=== PATIENT | female | born 1995 | race Caucasian/White ===

== ENCOUNTER 2021-10-10 14:31 | Outpatient (CLI) | payer OTHER, SELFPAY ==
--- NOTE | 2021-10-12 13:18 | P.PCNHOL_ITS ---
Holter/Event Monitor Holter/Event Monitor Date of procedure: 10/10/21 Holter/Event Procedure: 24 Hr Holter Monitor Diagnosis: Tachycardia Indications: Tachycardia Image/Tracing Quality: Good Finding: Test date 10/10/2021 Analysis date 10/12/2021 Reading date 10/12/2021 Findings: Total of 23 hours and 59 minutes recorded and analyzed. Underlying normal sinus rhythm with heart rate variability between 63 and 146 beats per minute with an average heart rate of 92 beats per minute. The AV and IV conduction systems were within normal limits There was a total 7 premature atrial contractions. There was no ventricular arrhythmia No sustained or nonsustained runs of supraventricular or ventricular tachycardia No significant heart block or pauses with longest RR interval of 1.2 seconds. Symptoms vents correlate to sinus rhythm or sinus tachycardia. Symptom events included shortness of breath, dizzy, dizzy, nauseated, shaky hands, shortness of breath, lightheaded, chest pain Conclusion: 1. Underlying normal sinus rhythm/sinus tachycardia with elevated a verage heart rate of 92 beats per minute 2. No ventricular ectopy or arrhythmia 3. Only a total of 7 premature atrial contractions noted 4. Several symptom events correlate to sinus rhythm or sinus tachycardia but was without associated arrhythmia, heart block, pauses
== END 2021-10-10 14:32 | disposition home or self-care (01) ==
LOC: ANHCARD 14:35
PROVIDERS: Visit Provider Advanced Practice Midwife
DX: R00.0 Tachycardia, unspecified (principal)
CPT/HCPCS: 93225; 93226

== ENCOUNTER 2021-10-20 14:32 | Observation (INO) | payer OTHER, SELFPAY ==
[2021-10-20] VITALS (10 sets, daily range): BP systolic 121–130; BP diastolic 66–71; PULSE 78–89; TEMP 36.9; O2SAT 98–99; BMI 65.4
--- NOTE | 2021-10-20 14:32 | OBADM ---
This patient, Chelsea Hyatt, admitted to the OB room OB Post 116 for observation. Patient/family oriented to hospital policies and general routines including ID bracelet, bed and alarms, visiting hours, pain management, procedures, bathroom and other care routines, personal items, smoking policy, room service/diet, and visiting hours. Patient/Family are encouraged to report perceived risks to care and to ask questions if they do not understand what they are told or what they should do.
[2021-10-20 15:47] LABS: Add Urine Microscopic? NO; Appearance Urine Clear (Clear); Bilirubin Urine Negative (Negative); Blood Urine Negative (Negative); Color Urine Straw (Yellow); Glucose Urine UA Negative (Negative); Ketones Urine Negative (Negative); Leukocyte Esterase Ur Negative LEU/UL (Negative); Nitrate Urine Negative (Negative); Protein Urine Negative (Negative); Urobilinogen Urine Negative mg/dL (<2.0)
[2021-10-20 15:55] LABS: Specific Grav Ur 1.004 (1.001-1.035)
--- NOTE | 2021-10-21 16:31 | PM.OBTRLD ---
OB - Triage/Final Diagnosis Visit Information Date of evaluation: 10/20/21 Reason for evaluation: threatened labor Comments/Additional reasons for admission: I have assessed the risk for this patient, Chelsea Hyatt, and determined that she would benefit from observation care. Evaluation Laboratory results: Laboratory Tests 10/20/21 10/20/21 15:30 15:30 Urine Color Cancelled Straw Urine Appearance Cancelled Clear Urine pH Cancelled 7.0 Ur Specific [place] Cancelled 1.004 Urine Protein Cancelled Negative Urine Glucose (UA) Cancelled Negative Urine Ketones Cancelled Negative Ur Blood (Man) Cancelled Negative Urine Nitrate Cancelled Negative Urine Bilirubin Cancelled Negative Urine Urobilinogen Cancelled Negative Ur Leukocyte Esterase Cancelled Leukocyte Esterase Rfl Negative Urine RBC Cancelled Urine WBC Cancelled Urine WBC Clumps Cancelled Ur Squamous Epith Cells Cancelled Ur Transition Epith Cell Cancelled Ur Renal Epithelial Cell Cancelled [place]ney Biurate Crystals Cancelled Calcium Carbonate Cryst Cancelled Calcium Phosphate Cryst Cancelled Calcium Oxalate Crystal Cancelled Leucine Crystals Cancelled Cystine Crystals Cancelled Uric Acid Crystals Cancelled Triple Phos Crystals Cancelled Sulfonamide Crystals Cancelled Cholesterol Crystals Cancelled Tyrosine Crystals Cancelled Hippuric Acid Crystals Cancelled Amorphous Sediment Cancelled Other Sediment Cancelled Urine Bacteria Cancelled Cellular Casts Cancelled Epithelial Casts Cancelled Fatty Casts Cancelled Hyaline Casts Cancelled Granular Casts Cancelled Waxy Casts Cancelled RBC Casts Cancelled WBC Casts Cancelled Urine Starch Cancelled Urine Mucus Cancelled Urine Trichomonas Cancelled Urine Yeast (Budding) Cancelled Ur Oval Fat Bodies Cancelled
== END 2021-10-20 17:00 | disposition home or self-care (01) ==
PROVIDERS: Admitting Provider Obstetrics & Gynecology; PCP Advanced Practice Midwife; Visit Provider Obstetrics & Gynecology
DX: O47.02 False labor before 37 completed weeks of gestation, second trimester (principal); Z3A.24 24 weeks gestation of pregnancy
CPT/HCPCS: 81003; G0378; G0379

== ENCOUNTER 2021-12-05 17:13 | Outpatient (CLI) | payer OTHER, SELFPAY ==
[2021-12-05 17:29] VITALS: BP 131/67; PULSE 89
[2021-12-05 18:19] VITALS: BP 131/67; PULSE 87; BMI 32.1
--- NOTE | 2021-12-05 18:21 | OBADM ---
This patient, Chelsea Hyatt, admitted to the OB room OB Post 111 for observation. Patient/family oriented to hospital policies and general routines including ID bracelet, bed and alarms, visiting hours, pain management, procedures, bathroom and other care routines, personal items, smoking policy, room service/diet, and visiting hours. Patient/Family are encouraged to report perceived risks to care and to ask questions if they do not understand what they are told or what they should do.
== END 2021-12-05 18:27 | disposition home or self-care (01) ==
LOC: ANHOBOP 12-06 08:18 → ANHOBPP 12-12 06:20
PROVIDERS: PCP Advanced Practice Midwife; Visit Provider Obstetrics & Gynecology
DX: O42.913 Preterm premature rupture of membranes, unspecified as to length of time between rupture and onset of labor, third trimester (principal); Z3A.30 30 weeks gestation of pregnancy
CPT/HCPCS: 59025; 99199

== ENCOUNTER 2022-01-02 10:14 | Outpatient (CLI) | payer OTHER, SELFPAY ==
[2022-01-02] VITALS (25 sets, daily range): BP systolic 122–132; BP diastolic 66–82; PULSE 87–107; O2SAT 98–99
[2022-01-02 11:33] LABS: Basophils Percent Auto 0.2 % (0.2-1.2); Eosinophils Percent Auto 0.2 % (0-4.4); Hematocrit 38.2 % (37.0-47.0); Hemoglobin 12.9 g/dL (12.0-15.0); Immature Granulocyte Absolute 0.06 K/mm3 (0.00-0.031); Immature Granulocyte Percent A 0.4 % (0-0.5); Lymphocytes Absolute Auto 1.66 K/mm3 (0.9-3.2); Lymphocytes Percent Auto 11.2 % (18.3-44.2); Mean Corpuscular HGB Conc 33.8 g/dl (32-36); Mean Corpuscular Volume 97.7 fl (80-100); Monocytes Absolute Auto 1.4 K/mm3 (0.1-0.6); Monocytes Percent Auto 9.6 % (2.6-8.5); Neutrophils Absolute Auto 11.6 K/mm3 (1.3-6.7); Neutrophils Percent Auto 78.4 % (45.5-73.1); Platelet Count Result 299 k/mm3 (150-375); Red Blood Count 3.91 M/mm3 (4.2-5.4); Red Cell Distribution Width 13.3 % (11.5-14.5); White Blood Count 14.8 K/mm3 (4.5-10.0)
[2022-01-02 11:39] LABS: Creatinine Urine 78.4 mg/dL; Total Protein Urine Random 9 mg/dL; Ur Ttl Prot Creatinine Ratio 0.11 mg/mg (0-0.20)
[2022-01-02 11:41] LABS: Alanine Aminotransferase 13 U/L (6-35); Albumin Level 3.6 g/dL (3.5-5.1); Alkaline Phosphatase 108 U/L (38-126); Anion Gap 5 mmol/L (8-16); Aspartate Amino Transferase 18 U/L (14-36); Bilirubin,Total < 0.1 mg/dL (0.2-1.3); Blood Urea Nitrogen 8 mg/dL (7-17); Carbon Dioxide 23 mmol/L (22-30); Chloride 107 mmol/L (98-107); Estimated Glomerular Filt Rate > 60; Glucose 73 mg/dL (65-110); Sodium 135 mmol/L (137-145); Uric Acid 3.8 mg/dL (2.5-7.5)
[2022-01-02 11:42] LABS: Appearance Urine Clear (Clear); Bilirubin Urine Negative (Negative); Blood Urine Negative (Negative); Color Urine Yellow (Yellow); Glucose Urine UA Negative (Negative); Ketones Urine Negative (Negative); Leukocyte Esterase Ur Negative LEU/UL (NEGATIVE); Nitrate Urine Negative (Negative); Protein Urine Negative (Negative); Urobilinogen Urine 0.2 mg/dL (<2.0)
[2022-01-02 12:03] LABS: Add Urine Microscopic? NO
--- NOTE | 2022-01-02 12:48 | PC.NURSE ---
Dr. Richardson notified of admission complaints, lab values, vitals and heart tones. Ok to DC pt home with pre-E precautions.
== END 2022-01-02 12:50 | disposition home or self-care (01) ==
LOC: ANHOBOP 10:23 → ANHOBPP 10:23
PROVIDERS: Visit Provider Advanced Practice Midwife
DX: R06.02 Shortness of breath (principal); H53.8 Other visual disturbances
CPT/HCPCS: 36415; 59025; 80053; 81003; 82570; 84156; 84550; 85025; 87086; 99199

== ENCOUNTER 2022-01-16 15:46 | Outpatient (CLI) | payer OTHER, SELFPAY ==
[2022-01-16] VITALS (7 sets, daily range): BP systolic 130–143; BP diastolic 73–90; PULSE 96–110
[2022-01-16] MEDS: ONDANSETRON HCL ODT 4 MG TABLET PO (16:25)
[2022-01-16 16:33] LABS: Basophils Absolute Auto 0.1 K/mm3 (0.0-0.1); Basophils Percent Auto 0.3 % (0.2-1.2); Eosinophils Percent Auto 0.2 % (0-4.4); Hematocrit 37.1 % (37.0-47.0); Hemoglobin 12.9 g/dL (12.0-15.0); Immature Granulocyte Absolute 0.06 K/mm3 (0.00-0.031); Immature Granulocyte Percent A 0.4 % (0-0.5); Lymphocytes Absolute Auto 1.64 K/mm3 (0.9-3.2); Lymphocytes Percent Auto 11.3 % (18.3-44.2); Mean Corpuscular HGB Conc 34.8 g/dl (32-36); Mean Corpuscular Hemoglobin 33.6 pg (26-34); Mean Corpuscular Volume 96.6 fl (80-100); Mean Platelet Volume 11.1 fl (7.4-10.4); Monocytes Absolute Auto 1.2 K/mm3 (0.1-0.6); Monocytes Percent Auto 8.3 % (2.6-8.5); Neutrophils Absolute Auto 11.5 K/mm3 (1.3-6.7); Neutrophils Percent Auto 79.5 % (45.5-73.1); Platelet Count Result 306 k/mm3 (150-375); Red Blood Count 3.84 M/mm3 (4.2-5.4); Red Cell Distribution Width 13.4 % (11.5-14.5); White Blood Count 14.5 K/mm3 (4.5-10.0)
[2022-01-16 16:47] LABS: Appearance Urine Clear (Clear); Bilirubin Urine Negative (Negative); Blood Urine Negative (Negative); Color Urine Yellow (Yellow); Glucose Urine UA Negative (Negative); Ketones Urine Negative (Negative); Leukocyte Esterase Ur Negative LEU/UL (NEGATIVE); Nitrate Urine Negative (Negative); Protein Urine Negative (Negative); Urobilinogen Urine 0.2 mg/dL (<2.0)
[2022-01-16 16:49] LABS: Add Urine Microscopic? NO
[2022-01-16 16:53] LABS: Alanine Aminotransferase 16 U/L (6-35); Albumin Level 3.4 g/dL (3.5-5.1); Alkaline Phosphatase 133 U/L (38-126); Anion Gap 6 mmol/L (8-16); Aspartate Amino Transferase 19 U/L (14-36); Bilirubin,Total < 0.1 mg/dL (0.2-1.3); Blood Urea Nitrogen 8 mg/dL (7-17); Calcium 8.3 mg/dL (8.4-10.2); Carbon Dioxide 20 mmol/L (22-30); Chloride 109 mmol/L (98-107); Estimated Glomerular Filt Rate > 60; Glucose 135 mg/dL (65-110); Potassium 3.7 mmol/L (3.4-5.0); Sodium 135 mmol/L (137-145)
[2022-01-16 16:54] LABS: Creatinine Urine 116.9 mg/dL
[2022-01-16 17:07] LABS: Total Protein Urine Random < 5 mg/dL
[2022-01-16 17:08] LABS: Ur Ttl Prot Creatinine Ratio < 0.04 mg/mg (0-0.20)
--- NOTE | 2022-01-16 17:40 | PC.NURSE ---
Porsche Morales called and updated on patient status/lab values. New orders for one dose of Fioricet for headache. New home order for 4 mg of zofran. Ordered to observe patient for 30 minutes and callback with status update.
[2022-01-16] MEDS: ACETAMINOPHEN/BUTALBITAL/CAFFEINE 325-50-40 MG TABLET (FIORICET) 1 TAB PO (17:46)
== END 2022-01-16 18:23 | disposition home or self-care (01) ==
LOC: ANHOBOP 15:51 → ANHOBPP 15:52
PROVIDERS: Visit Provider Advanced Practice Midwife
DX: O13.9 Gestational [pregnancy-induced] hypertension without significant proteinuria, unspecified trimester (principal); Z3A.00 Weeks of gestation of pregnancy not specified
CPT/HCPCS: 36415; 59025; 80053; 81003; 82570; 84156; 84550; 85025; 87086; 99199; A9270

== ENCOUNTER 2022-01-18 10:10 | Inpatient (IN) | payer OTHER, SELFPAY ==
[2022-01-18] VITALS (148 sets, daily range): BP systolic 103–166; BP diastolic 47–102; PULSE 82–118; TEMP 36.6–36.9; O2SAT 97–100; BMI 32.1
--- NOTE | 2022-01-18 10:32 | LDADM ---
This patient, Chelsea Hyatt, was admitted to Labor/Delivery/Recovery 108 on 01/18/22 at 10:10. Plans for labor, pain management and were discussed with patient. Patient/family oriented to hospital policies and general routines including ID bracelet, bed and alarms, visiting hours, pain management, procedures, bathroom and other care routines, personal items, smoking policy, room service/diet and guest tray routines, security routines, and visiting hours. Patient/Family are encouraged to report perceived risks to care and to ask questions if they do not understand what they are told or what they should do. See OBIX for further documentation.
[2022-01-18 11:01] LABS: Basophils Percent Auto 0.3 % (0.2-1.2); Eosinophils Percent Auto 0.1 % (0-4.4); Hemoglobin 12.9 g/dL (12.0-15.0); Immature Granulocyte Absolute 0.06 K/mm3 (0.00-0.031); Immature Granulocyte Percent A 0.4 % (0-0.5); Lymphocytes Absolute Auto 1.49 K/mm3 (0.9-3.2); Lymphocytes Percent Auto 10.2 % (18.3-44.2); Mean Corpuscular HGB Conc 33.9 g/dl (32-36); Mean Corpuscular Hemoglobin 32.7 pg (26-34); Mean Corpuscular Volume 96.2 fl (80-100); Mean Platelet Volume 10.8 fl (7.4-10.4); Platelet Count Result 281 k/mm3 (150-375); Red Blood Count 3.95 M/mm3 (4.2-5.4); Red Cell Distribution Width 13.3 % (11.5-14.5); White Blood Count 14.6 K/mm3 (4.5-10.0)
[2022-01-18] MEDS: DINOPROSTONE 10 MG VAG INSERT VAGINAL (11:04)
[2022-01-18 11:14] LABS: Sodium 135 mmol/L (137-145)
[2022-01-18 11:18] LABS: Alanine Aminotransferase 16 U/L (6-35); Albumin Level 3.5 g/dL (3.5-5.1); Alkaline Phosphatase 135 U/L (38-126); Anion Gap 5 mmol/L (8-16); Aspartate Amino Transferase 21 U/L (14-36); Bilirubin,Total < 0.1 mg/dL (0.2-1.3); Blood Urea Nitrogen 10 mg/dL (7-17); Calcium 8.9 mg/dL (8.4-10.2); Carbon Dioxide 20 mmol/L (22-30); Chloride 110 mmol/L (98-107); Estimated CRCL calculation 128 ml/min; Estimated Glomerular Filt Rate > 60; Glucose 111 mg/dL (65-110); Potassium 3.8 mmol/L (3.4-5.0); Uric Acid 4.3 mg/dL (2.5-7.5)
[2022-01-18] MEDS: ONDANSETRON INJ 4 MG/2 ML VIAL IV PUSH (11:46)
[2022-01-18] MEDS: LACTATED RINGERS 1,000 ML 125 ML IV CONT (11:49)
--- NOTE | 2022-01-18 11:49 | WPDANESEPP ---
Anes - Eval Pre Procedure Procedure: labor epidural Date/Time: 01/18/22 11:49 Preop Diagnosis: labor pain Pre Op Diagnosis: iol Patient Data Age: 26 Gender: F Height: 1.63 m Weight: 85 kg Last Vital Signs Pulse 87 01/18/22 11:45 BP 124/76 01/18/22 11:45 O2 Del Method Room Air 01/18/22 10:31 Allergies Allergy/AdvReac Type Severity Reaction Status Date / Time Penicillins Allergy Unknown Verified 01/11/22 13:32 Home Medications Medication Instructions Recorded Confirmed Type szcnrzhpmr-osekhkwnwgtjn-krhrimxl 1 tablet PO Q4-6H PRN Headache 01/11/22 01/11/22 History 50 mg-325 mg-40 mg tablet famotidine 10 mg tablet (Pepcid AC) 10 mg PO BID 01/11/22 01/11/22 History prenat.vits,leticia,qfb-ypna-stwrd 1 tablet PO DAILY 01/11/22 01/11/22 History ondansetron 4 mg disintegrating 4 mg PO Q6H PRN Nausea #10 tabs 01/16/22 Rx tablet Laboratory Tests 01/18/22 01/18/22 01/18/22 10:39 10:39 10:39 WBC 14.6 K/mm3 H K/mm3 (4.5-10.0) RBC 3.95 M/mm3 L M/mm3 (4.2-5.4) Hgb 12.9 g/dL g/dL (12.0-15.0) Hct 38.0 % % (37.0-47.0) MCV 96.2 fl fl (80-100) MCH 32.7 pg pg (26-34) MCHC 33.9 g/dl g/dl (32-36) RDW 13.3 % % (11.5-14.5) Plt Count 281 k/mm3 k/mm3 (150-375) MPV 10.8 fl H fl (7.4-10.4) Immature Gran % (Auto) 0.4 % % (0-0.5) Neut % (Auto) 82.0 % H % (45.5-73.1) Lymph % (Auto) 10.2 % L % (18.3-44.2) [place] % (Auto) 7.0 % % (2.6-8.5) Eos % (Auto) 0.1 % % (0-4.4) Baso % (Auto) 0.3 % % (0.2-1.2) Lymph # (Auto) 1.49 K/mm3 K/mm3 (0.9-3.2) [place] # (Auto) 1.0 K/mm3 H K/mm3 (0.1-0.6) Eos # (Auto) 0.0 K/mm3 K/mm3 (0-0.3) Baso # (Auto) 0.0 K/mm3 K/mm3 (0.0-0.1) Abs Immat Gran (auto) 0.06 K/mm3 H K/mm3 (0.00-0.031) Absolute Neuts (auto) 12.0 K/mm3 H K/mm3 (1.3-6.7) Absolute Nucleated RBC 0.0 K/mm3 K/mm3 (0.0-0.012) Nucleated RBC % 0.0 % % (0.0-0.2) Sodium 135 mmol/L L mmol/L (137-145) Potassium 3.8 mmol/L mmol/L (3.4-5.0) Chloride 110 mmol/L H mmol/L (98-107) Carbon Dioxide 20 mmol/L L mmol/L (22-30) Anion Gap 5 mmol/L L mmol/L (8-16) BUN 10 mg/dL mg/dL (7-17) Creatinine 0.60 mg/dL L mg/dL (0.7-1.0) Estim Creat Clear Calc 128 ml/min ml/min Estimated GFR > 60 (59 - ) Glucose 111 mg/dL H mg/dL (65-110) Uric Acid 4.3 mg/dL mg/dL (2.5-7.5) Calcium 8.9 mg/dL mg/dL (8.4-10.2) Total Bilirubin < 0.1 mg/dL L mg/dL (0.2-1.3) AST 21 U/L U/L (14-36) ALT 16 U/L U/L (6-35) Alkaline Phosphatase 135 U/L H U/L (38-126) Total Protein 7.0 g/dL g/dL (6.3-8.2) Albumin 3.5 g/dL g/dL (3.5-5.1) RPR Pending Patient hx anesthesia problems: none Family hx anesthesia problems: none Results Review: All pre-operative results and documents have been reviewed as part of the pre-operative evaluation. [facility] Family History Family History (Updated 01/11/22 @ 13:37 by Bernie Oates RN) Father Esophageal cancer Grandparent Breast cancer in female Social History Social History Smoking status: Never smoker Substance use: never Spiritual care concerns: No Comments migraine HSV tachycardia with spondylostesis L5-S1 Exam Day of Procedure 01/18/22 11:49
[2022-01-18] MEDS: MAGNESIUM SULF 4 GM/WATER100ML 4 GM/100 ML BAG IVPB (11:50)
[2022-01-18] MEDS: MAGNESIUM SULF 20GM/WATER500ML 500 ML 50 MG IV CONT ×2 (12:28→22:24)
[2022-01-18] MEDS: diphenhydrAMINE HCl INJ 50 MG/ML VIAL 25 MG IV PUSH (15:18)
[2022-01-18] MEDS: METOCLOPRAMIDE HCL INJ 10 MG/2 ML VIAL IV PUSH (15:19)
--- NOTE | 2022-01-18 18:25 | PM.IMHP ---
H&P: HPI History of Present Illness Date/Time: 01/18/22 18:25 Chief Complaint: Patient presents to L&D for medical induction of labor. Patient presented to office today with severe range blood pressures and headache unresolved by medication. Discussed with Dr. Monroe and patient has been started on magnesium sulfate. Headache has not resolved with multiple interventions and is currently rating at 8/10. BP normotensive at rest. Review of Systems Review of Systems: All systems reviewed & are unremarkable except as noted in HPI and below PMFSH Family History Family History (Updated 01/11/22 @ 13:37 by Bernie Oates RN) Father Esophageal cancer Grandparent Breast cancer in female Social History Social History Smoking status: Never smoker Substance use: never Spiritual care concerns: No Meds Home Medications and Allergies Home Medications Medication Instructions Recorded Confirmed Type rfjwvgiwfc-gadwebixbwlrr-sjgvtubv 1 tablet PO Q4-6H PRN Headache 01/11/22 01/11/22 History 50 mg-325 mg-40 mg tablet famotidine 10 mg tablet (Pepcid AC) 10 mg PO BID 01/11/22 01/11/22 History prenat.vits,leticia,jpz-xyun-rzfau 1 tablet PO DAILY 01/11/22 01/11/22 History ondansetron 4 mg disintegrating 4 mg PO Q6H PRN Nausea #10 tabs 01/16/22 Rx tablet Allergies Allergy/AdvReac Type Severity Reaction Status Date / Time Penicillins Allergy Unknown Verified 01/11/22 13:32 Vital Signs Vital Signs - 24 hr 01/18/22 10:31 01/18/22 10:59 01/18/22 11:15 Temperature Pulse Rate 109 H 96 Blood Pressure 132/75 123/77 Pulse Oximetry Oxygen Delivery Room Air 01/18/22 11:30 01/18/22 11:45 01/18/22 12:01 Temperature Pulse Rate 93 87 84 Blood Pressure 127/72 124/76 119/60 Pulse Oximetry Oxygen Delivery 01/18/22 12:15 01/18/22 12:30 01/18/22 12:45 Temperature Pulse Rate 89 87 83 Blood Pressure 126/79 115/66 125/70 Pulse Oximetry Oxygen Delivery 01/18/22 13:02 01/18/22 13:15 01/18/22 13:31 Temperature Pulse Rate 87 85 90 Blood Pressure 114/73 128/77 119/62 Pulse Oximetry Oxygen Delivery 01/18/22 13:45 01/18/22 14:00 01/18/22 14:16 Temperature Pulse Rate 90 99 107 H Blood Pressure 122/76 128/72 127/72 Pulse Oximetry Oxygen Delivery 01/18/22 14:30 01/18/22 14:46 01/18/22 15:01 Temperature Pulse Rate 108 H 105 H 104 H Blood Pressure 148/85 H 153/79 H 152/93 H Pulse Oximetry Oxygen Delivery 01/18/22 15:03 01/18/22 15:08 01/18/22 15:13 Temperature Pulse Rate Blood Pressure Pulse Oximetry 99 99 98 Oxygen Delivery 01/18/22 15:16 01/18/22 15:18 01/18/22 15:26 Temperature Pulse Rate 97 Blood Pressure 166/92 H Pulse Oximetry 99 99 Oxygen Delivery 01/18/22 15:29 01/18/22 15:31 01/18/22 15:34 Temperature Pulse Rate 103 H Blood Pressure 137/88 Pulse Oximetry 98 97 Oxygen Delivery 01/18/22 15:00 01/18/22 15:43 01/18/22 15:46 Temperature 36.6 C Pulse Rate 98 Blood Pressure 137/64 Pulse Oximetry 98 Oxygen Delivery 01/18/22 15:48 01/18/22 15:53 01/18/22 15:58 Temperature Pulse Rate Blood Pressure Pulse Oximetry 99 99 99 Oxygen Delivery 01/18/22 16:01 01/18/22 16:03 01/18/22 16:08 Temperature Pulse Rate 89 Blood Pressure 128/69 Pulse Oximetry 98 99 Oxygen Delivery 01/18/22 16:13 01/18/22 16:15 01/18/22 16:18 Temperature Pulse Rate 92 Blood Pressure 135/75 Pulse Oximetry 98 97 Oxygen Delivery 01/18/22 16:23 01/18/22 16:28 01/18/22 16:30 Temperature Pulse Rate 91 Blood Pressure 132/77 Pulse Oximetry 99 97 Oxygen Delivery 01/18/22 16:33 01/18/22 16:38 01/18/22 16:43 Temperature Pulse Rate Blood Pressure Pulse Oximetry 97 98 98 Oxygen Delivery 01/18/22 16:45 01/18/22 16:48 01/18/22 16:53 Temperature Pulse Rate 91 Blood Pressure 129/73 Pulse Oximetry 99
[2022-01-18] MEDS: ACETAMINOPHEN/BUTALBITAL/CAFFEINE 325-50-40 MG TABLET (FIORICET) 2 TAB PO (19:55)
[2022-01-18] MEDS: miSOPROStol 25 MCG TABLET VAGINAL (23:51)
[2022-01-18] MEDS: LACTATED RINGERS 1,000 ML 75 ML IV CONT (23:59)
[2022-01-19] VITALS (299 sets, daily range): BP systolic 104–159; BP diastolic 58–84; PULSE 76–112; TEMP 36.1–37; O2SAT 95–100
[2022-01-19] MEDS: ONDANSETRON INJ 4 MG/2 ML VIAL IV PUSH ×4 (00:19→20:48)
[2022-01-19 02:52] LABS: Magnesium 5.8 mg/dL (1.6-2.3)
[2022-01-19] MEDS: miSOPROStol 25 MCG TABLET VAGINAL ×3 (04:08→12:47)
[2022-01-19 05:54] LABS: Rapid Plasma Reagin Non-Reactive (NonReactive)
[2022-01-19] MEDS: fentaNYL CITRATE INJ (*CRX) 100 MCG/2 ML VIAL 50 MCG IV PUSH ×3 (07:19→19:43)
--- NOTE | 2022-01-19 07:27 | PM.OBPNVD ---
OB - PN: Subj Subjective Date/time seen: 01/19/22 07:27 IOL, severe preeclampsia, c/o bautista, denies visual changes, c/o nausea, magnesium sulfate at 2gm/hour OB - PN: Obj Data Labs CBC & Chem 7: 01/18/22 10:39 01/18/22 10:39 Labs: Laboratory Results - last 24 hr 01/18/22 01/18/22 01/18/22 10:39 10:39 10:39 WBC 14.6 H RBC 3.95 L Hgb 12.9 Hct 38.0 MCV 96.2 MCH 32.7 MCHC 33.9 RDW 13.3 Plt Count 281 MPV 10.8 H Immature Gran % (Auto) 0.4 Neut % (Auto) 82.0 H Lymph % (Auto) 10.2 L [place] % (Auto) 7.0 Eos % (Auto) 0.1 Baso % (Auto) 0.3 Lymph # (Auto) 1.49 [place] # (Auto) 1.0 H Eos # (Auto) 0.0 Baso # (Auto) 0.0 Abs Immat Gran (auto) 0.06 H Absolute Neuts (auto) 12.0 H Absolute Nucleated RBC 0.0 Nucleated RBC % 0.0 Sodium Potassium Chloride Carbon Dioxide Anion Gap BUN Creatinine Estim Creat Clear Calc Estimated GFR Glucose Uric Acid Calcium Magnesium Total Bilirubin AST ALT Alkaline Phosphatase Total Protein Albumin RPR Non-reactive Blood Type A Positive Antibody Screen Negative 01/18/22 01/19/22 10:39 02:15 WBC RBC Hgb Hct MCV MCH MCHC RDW Plt Count MPV Immature Gran % (Auto) Neut % (Auto) Lymph % (Auto) [place] % (Auto) Eos % (Auto) Baso % (Auto) Lymph # (Auto) [place] # (Auto) Eos # (Auto) Baso # (Auto) Abs Immat Gran (auto) Absolute Neuts (auto) Absolute Nucleated RBC Nucleated RBC % Sodium 135 L Potassium 3.8 Chloride 110 H Carbon Dioxide 20 L Anion Gap 5 L BUN 10 Creatinine 0.60 L Estim Creat Clear Calc 128 Estimated GFR > 60 Glucose 111 H Uric Acid 4.3 Calcium 8.9 Magnesium 5.8 H Total Bilirubin < 0.1 L AST 21 ALT 16 Alkaline Phosphatase 135 H Total Protein 7.0 Albumin 3.5 RPR Blood Type Antibody Screen OB - PN A/P Assessment and Plan (1) Pre-eclampsia: Code(s): O14.90 - Unspecified pre-eclampsia, unspecified trimester Status: Acute Plan 1. bat 37.1 weks gestation 2. continue magnesium sulfate and MIL Dr. Richardson aware Time Spent With Patient Time: Total time spent is greater than 50% in coordination of care (as documented) at patient's floor/unit and/or counseling patient: Review of Systems Review of Systems: All systems reviewed & are unremarkable except as noted in HPI and below Exam Narrative: SVE 0.5 cm/50/-2 Const: General: cooperative and uncomfortable
[2022-01-19] MEDS: MAGNESIUM SULF 20GM/WATER500ML 500 ML 50 MG IV CONT ×2 (08:06→18:21)
[2022-01-19] MEDS: LACTATED RINGERS 1,000 ML 75 ML IV CONT (12:27)
[2022-01-19] MEDS: fentaNYL CITRATE INJ (*CRX) 100 MCG/2 ML VIAL IV PUSH (12:38)
--- NOTE | 2022-01-19 18:08 | WPDANESEPP ---
Anes - Eval Pre Procedure Procedure: Labor Epidural Date/Time: 01/19/22 18:08 Pre Op Diagnosis: iol Patient Data Age: 26 Gender: F Height: 1.63 m Weight: 85 kg Last Vital Signs Temp 36.4 C L 01/19/22 13:00 Pulse 91 01/19/22 14:01 BP 120/75 01/19/22 14:01 Pulse Ox 98 01/19/22 18:07 O2 Del Method Room Air 01/18/22 10:31 Allergies Allergy/AdvReac Type Severity Reaction Status Date / Time Penicillins Allergy Unknown Verified 01/11/22 13:32 Home Medications Medication Instructions Recorded Confirmed Type ypfkwewjkt-fpojpurhjdjiz-uxfzsgjm 1 tablet PO Q4-6H PRN Headache 01/11/22 01/11/22 History 50 mg-325 mg-40 mg tablet famotidine 10 mg tablet (Pepcid AC) 10 mg PO BID 01/11/22 01/11/22 History prenat.vits,leticia,vqi-ythc-pjbnz 1 tablet PO DAILY 01/11/22 01/11/22 History ondansetron 4 mg disintegrating 4 mg PO Q6H PRN Nausea #10 tabs 01/16/22 Rx tablet Laboratory Tests 01/18/22 01/19/22 10:39 02:15 Magnesium 5.8 mg/dL H mg/dL (1.6-2.3) RPR Non-reactive (NonReactive) Patient hx anesthesia problems: none Family hx anesthesia problems: none Results Review: All pre-operative results and documents have been reviewed as part of the pre-operative evaluation. [facility] Family History Family History Father Esophageal cancer Grandparent Breast cancer in female Social History Social History Smoking status: Never smoker Substance use: never Spiritual care concerns: No Exam Day of Procedure 01/19/22 18:08
[2022-01-19] MEDS: DINOPROSTONE 10 MG VAG INSERT VAGINAL (18:32)
[2022-01-19 22:28] LABS: Magnesium 6.5 mg/dL (1.6-2.3)
[2022-01-20] VITALS (245 sets, daily range): BP systolic 64–167; BP diastolic 28–102; PULSE 65–164; RESP 14–18; TEMP 35.7–37; O2SAT 93–100
[2022-01-20] MEDS: LACTATED RINGERS 1,000 ML 75 ML IV CONT ×3 (01:58→14:43)
[2022-01-20] MEDS: MAGNESIUM SULF 20GM/WATER500ML 500 ML 50 MG IV CONT ×2 (04:29→14:30)
[2022-01-20] MEDS: SALINE 0.65% NAS SOLN 44 ML BTL 1 SPRAY NASAL (05:38)
[2022-01-20] MEDS: OXYTOCIN 30 UNITS/NS 500 ML 30 UNITS/500 ML BAG 6 UNITS IV CONT (07:25)
[2022-01-20] MEDS: PHENYLEPHRINE 1,000 MCG/10 ML SYRINGE 100 MCG IV PUSH (09:15)
--- NOTE | 2022-01-20 12:04 | PM.OBPNLAB ---
Pain Control Date/time seen: 01/20/22 12:04 pt comfortable with epidural, FHR category 2 Pelvic Exam Comments: SVE /-2 anterior/soft, AROM moderate amount of clear odorless fluid, IUPC placed
--- NOTE | 2022-01-20 12:16 | PM.OBPNLAB ---
Pain Control Date/time seen: 01/20/22 12:16 Assessment and Plan Comments: 1. intolerance to labor 2. preeclampsia 3. CMV +IGG at 37.2 weeks gestation consulted with Dr. Richardson and plan section
[2022-01-20] MEDS: ceFAZolin 2 GM/D5W 50 ML 2 GM/50 ML BAG IVPB (12:41)
--- NOTE | 2022-01-20 13:19 | W.PM.PROC2 ---
Procedure Note - Detailed Date of Procedure 01/20/22 Pre-op Diagnosis Nonreassuring heart tones, distress, severe preeclampsia Post-op Diagnosis Same Procedure Performed Low-transverse section Surgeon Roslyn Richardson MD Anesthesia Spinal Indications Nonreassuring heart tones, possible distress Findings Normal gestational maternal anatomy, average size , normal Apgars. Description of Procedure This procedure was initially performed a rapid fashion. It was completed after the deliver the with a normal pace. The patient was taken the operating room. She was prepped and draped in dorsal supine position with a leftward tilt. A low-transverse skin incision was made and carried down till of the fascia with the knife. The fascial incision was made with the knife. The fascial incision was extended laterally with Clark scissors. The fascia was tented upward superiorly and inferiorly the rectus muscles were dissected off bluntly. The rectus muscles were the midline. The preperitoneal fat and peritoneum were dissected open bluntly at the superior aspect of the rectus muscles. The peritoneal incision was extended superior and inferior with good position of bladder. The uterine incision was made with a scalpel down to the level of the amniotic cavity. The amniotic cavity was entered bluntly. The was delivered. The cord was clamped and cut and the infant was handed off to waiting pediatric staff. Cord bloods were obtained. The placenta was removed manually. The uterus was exteriorized. The uterus was cleared of all clots, debris and membranes. The uterus was closed in 0 Vicryl running lock fashion. An imbricating over a was placed along the incision line as well. The uterus was returned to the abdomen. The gutters were cleared of all clots and debris. The fascia was closed with 0 Vicryl running fashion. The subcutaneous tissue was irrigated pinpoint bleeders were cauterized. The skin was closed with subcuticular absorbable vin. The skin incision line was covered with glue. The patient tolerated the procedure well. She has taken recovery room in stable condition. Sponge lap and needle counts were correct x2. Estimated Blood Loss 300 Urine Output 300 Complications No immediate complications Condition Stable Disposition PACU
[2022-01-20] MEDS: OXYTOCIN 30 UNITS/NS 500 ML 30 UNITS/500 ML BAG 125 UNITS IV CONT (13:38)
[2022-01-20] MEDS: fentaNYL CITRATE INJ (*CRX) 100 MCG/2 ML VIAL 25 MCG IV PUSH (15:44)
--- NOTE | 2022-01-20 15:50 | OBPPTRN ---
Patient transferred to post room # 290 via stretcher. Support person present. Oriented to unit, room, information board, rooming in, admission packet and security measures. Patient verbalizes understanding.
[2022-01-20] MEDS: KETOROLAC 30 MG/ML VIAL (*BKC) IV PUSH (16:53)
[2022-01-20] MEDS: ONDANSETRON INJ 4 MG/2 ML VIAL IV PUSH ×2 (16:59→22:34)
[2022-01-20] MEDS: DEXTROSE 5%/0.45% SOD CHL 1,000 ML 125 ML IV CONT (18:40)
[2022-01-21 04:45] VITALS: BP 113/68; PULSE 93; RESP 18; TEMP 37.4; O2SAT 94
[2022-01-21 05:04] LABS: Basophils Percent Auto 0.2 % (0.2-1.2); Hematocrit 33.3 % (37.0-47.0); Hemoglobin 11.2 g/dL (12.0-15.0); Immature Granulocyte Absolute 0.12 K/mm3 (0.00-0.031); Immature Granulocyte Percent A 0.6 % (0-0.5); Lymphocytes Absolute Auto 1.16 K/mm3 (0.9-3.2); Lymphocytes Percent Auto 5.6 % (18.3-44.2); Mean Corpuscular HGB Conc 33.6 g/dl (32-36); Mean Corpuscular Hemoglobin 32.6 pg (26-34); Mean Corpuscular Volume 96.8 fl (80-100); Monocytes Percent Auto 9.5 % (2.6-8.5); Neutrophils Absolute Auto 17.3 K/mm3 (1.3-6.7); Neutrophils Percent Auto 84.1 % (45.5-73.1); Platelet Count Result 254 k/mm3 (150-375); Red Blood Count 3.44 M/mm3 (4.2-5.4); Red Cell Distribution Width 13.6 % (11.5-14.5); White Blood Count 20.6 K/mm3 (4.5-10.0)
[2022-01-21 06:45] VITALS: BP 114/68; PULSE 88; RESP 16; TEMP 37
[2022-01-21] MEDS: MULTIVIT/MIN/PREN/FOL AC/IRON TABLET 1 TAB PO (06:56)
[2022-01-21] MEDS: IBUPROFEN 600 MG TABLET PO ×3 (06:56→20:25)
[2022-01-21] MEDS: HYDROcodone/acetaminophen (*CRX) 5-325 MG TABLET 1 TAB PO ×5 (06:56→21:31)
[2022-01-21] MEDS: DOCUSATE SODIUM 100 MG CAPSULE PO ×2 (06:57→17:43)
--- NOTE | 2022-01-21 08:17 | P.PNAN_ITS ---
Anes - Prog Note Post-Op Date/Time: 01/21/22 08:17 Vital Signs: Last Vital Signs Temp 37.0 C 01/21/22 06:45 Pulse 88 01/21/22 06:45 Resp 16 01/21/22 06:45 BP 114/68 01/21/22 06:45 Pulse Ox 94 01/21/22 04:45 O2 Del Method Room Air 01/21/22 04:45 O2 Flow Rate 3 01/20/22 13:45 Pain Score (VAS): 09/01 I/O: Intake & Output 01/20/22 01/21/22 01/21/22 23:59 07:59 15:59 Intake Total 500 400 Output Total 1000 2050 Balance -500 -1650 Laboratory Tests 01/21/22 04:44 01/18/22 10:39 01/21/22 04:44 WBC 20.6 H RBC 3.44 L Hgb 11.2 L Hct 33.3 L MCV 96.8 MCH 32.6 MCHC 33.6 RDW 13.6 Plt Count 254 MPV 11.0 H Immature Gran % (Auto) 0.6 H Neut % (Auto) 84.1 H Lymph % (Auto) 5.6 L [place] % (Auto) 9.5 H Eos % (Auto) 0.0 Baso % (Auto) 0.2 Lymph # (Auto) 1.16 [place] # (Auto) 2.0 H Eos # (Auto) 0.0 Baso # (Auto) 0.0 Abs Immat Gran (auto) 0.12 H Absolute Neuts (auto) 17.3 H Absolute Nucleated RBC 0.0 Nucleated RBC % 0.0 Patient Feedback: Patient satisfied with anesthetic care.
--- NOTE | 2022-01-21 08:44 | PM.OBPNVD ---
OB - PN: Subj Subjective Date/time seen: 01/21/22 08:44 Patient comments: no complaints, pain well controlled, tolerating diet and flatus present OB - PN: Obj Data Labs CBC & Chem 7: 01/21/22 04:44 01/18/22 10:39 Labs: Laboratory Results - last 24 hr 01/21/22 04:44 WBC 20.6 H RBC 3.44 L Hgb 11.2 L Hct 33.3 L MCV 96.8 MCH 32.6 MCHC 33.6 RDW 13.6 Plt Count 254 MPV 11.0 H Immature Gran % (Auto) 0.6 H Neut % (Auto) 84.1 H Lymph % (Auto) 5.6 L [place] % (Auto) 9.5 H Eos % (Auto) 0.0 Baso % (Auto) 0.2 Lymph # (Auto) 1.16 [place] # (Auto) 2.0 H Eos # (Auto) 0.0 Baso # (Auto) 0.0 Abs Immat Gran (auto) 0.12 H Absolute Neuts (auto) 17.3 H Absolute Nucleated RBC 0.0 Nucleated RBC % 0.0 OB - PN A/P Plan day: 1 Comments: Post Op LTCS - no problems, routine recovery Time Spent With Patient Time: Total time spent is greater than 50% in coordination of care (as documented) at patient's floor/unit and/or counseling patient: Exam Const: General: cooperative, healthy appearing, comfortable and no acute distress Resp: Auscultation: no crackles, no rales, no rhonchi and no wheezes Cardio: Rhythm: regular rhythm Heart sounds: no click and no murmurs GI: Inspection: non-distended Auscultation: normal bowel sounds Extrem: General: normal to inspection, no pedal edema and no calf tenderness
[2022-01-21 11:45] VITALS: BP 112/83; PULSE 89; RESP 16
[2022-01-21 16:00] VITALS: BP 120/77; PULSE 84; RESP 18; TEMP 36.6
[2022-01-21] MEDS: SIMETHICONE 80 MG TAB.CHEW PO (20:25)
[2022-01-21 20:30] VITALS: BP 128/64; PULSE 85; RESP 18; TEMP 36.6
[2022-01-21 23:50] VITALS: BP 115/68; PULSE 83; RESP 18; TEMP 36.2
[2022-01-22] MEDS: LANOLIN (LANSINOH) 7.5 GM CREAM 1 APPLIC TOPICAL
[2022-01-22] MEDS: SIMETHICONE 80 MG TAB.CHEW PO ×4 (04:51→22:23)
[2022-01-22] MEDS: HYDROcodone/acetaminophen (*CRX) 5-325 MG TABLET 1 TAB PO ×3 (04:51→22:22)
[2022-01-22] MEDS: IBUPROFEN 600 MG TABLET PO ×3 (04:51→22:22)
[2022-01-22 05:10] VITALS: BP 119/55; PULSE 101; RESP 16; TEMP 36.4
[2022-01-22 09:00] VITALS: BP 135/64; PULSE 104; RESP 14; RESP 16; TEMP 36.2; O2SAT 97
--- NOTE | 2022-01-22 09:01 | PM.OBPNVD ---
OB - PN: Subj Subjective Date/time seen: 01/22/22 09:01 Patient comments: no complaints, pain well controlled, incisional pain, tolerating diet and flatus present OB - PN: Obj Data Labs CBC & Chem 7: 01/21/22 04:44 01/18/22 10:39 OB - PN A/P Plan day: 2 Plan: routine care Comments: POD#2 LTCS - no problems, Time Spent With Patient Time: Total time spent is greater than 50% in coordination of care (as documented) at patient's floor/unit and/or counseling patient: Exam Const: General: comfortable, no acute distress and alert Resp: Effort & Inspection: normal respiratory effort Auscultation: no crackles, no rales and no rhonchi Cardio: Rate: regular rate Heart sounds: no click, no murmurs and no rubs GI: Inspection: non-distended GI Palp: No Tenderness to palpation present (GI) Auscultation: normal bowel sounds Other: Incision - CDI Extrem: General: normal to inspection, no pedal edema and no calf tenderness
[2022-01-22] MEDS: DOCUSATE SODIUM 100 MG CAPSULE PO ×2 (09:12→17:09)
[2022-01-22] MEDS: MULTIVIT/MIN/PREN/FOL AC/IRON TABLET 1 TAB PO (09:12)
[2022-01-22] MEDS: HYDROcodone/acetaminophen (*CRX) 10-325 MG TABLET 1 TAB PO (09:13)
[2022-01-22 12:00] VITALS: BP 121/74; PULSE 96; RESP 14; TEMP 36.3
[2022-01-22 16:45] VITALS: BP 125/64; PULSE 104; RESP 16; RESP 18; TEMP 36.4; O2SAT 98
[2022-01-22 19:00] VITALS: BP 111/72; PULSE 89; RESP 18; TEMP 36.8; O2SAT 97
[2022-01-22 23:00] VITALS: BP 121/72; PULSE 88; RESP 16; TEMP 36.6; O2SAT 98
[2022-01-22 23:56] LABS: Appearance Urine Slightly Cloudy (Clear); Bilirubin Urine Negative (Negative); Blood Urine 3+ (Negative); Glucose Urine UA Negative (Negative); Ketones Urine Negative (Negative); Leukocyte Esterase Ur Trace LEU/UL (NEGATIVE); Nitrate Urine Negative (Negative); Protein Urine 1+ mg/dL (Negative); Specific Grav Ur 1.025 (1.001-1.035); Urobilinogen Urine 0.2 mg/dL (<2.0)
[2022-01-22 23:58] LABS: Add Urine Microscopic? YES; Color Urine Dark Yellow (Yellow)
[2022-01-23] LABS: Bacteria Urine Trace /hpf; Mucus Urine Few /lpf; RBC Urine >75 /hpf (0-2); Squamous Epithelial Cell Urine Moderate /hpf (Few); WBC Urine 31-50 /hpf (0-3)
[2022-01-23 02:30] VITALS: BP 120/67; PULSE 86; RESP 16; TEMP 36.3; O2SAT 98
[2022-01-23] MEDS: IBUPROFEN 600 MG TABLET PO (05:54)
[2022-01-23] MEDS: SIMETHICONE 80 MG TAB.CHEW PO (05:54)
[2022-01-23] MEDS: HYDROcodone/acetaminophen (*CRX) 5-325 MG TABLET 1 TAB PO (05:54)
[2022-01-23 07:40] VITALS: BP 124/76; PULSE 92; RESP 16; TEMP 36.9; O2SAT 98
[2022-01-23] MEDS: DOCUSATE SODIUM 100 MG CAPSULE PO (09:17)
[2022-01-23] MEDS: MULTIVIT/MIN/PREN/FOL AC/IRON TABLET 1 TAB PO (09:17)
--- NOTE | 2022-01-23 10:00 | P.PNOB_ITS ---
OB - PN: Subj Subjective Date/time seen: 01/23/22 10:00 Patient comments: no complaints, pain well controlled, incisional pain, tolerating diet and flatus present OB - PN: Obj Data Labs CBC & Chem 7: 01/21/22 04:44 01/18/22 10:39 Labs: Laboratory Results - last 24 hr 01/22/22 23:45 Urine Color Dark yellow Urine Appearance Slightly cloudy Urine pH 6.0 Ur Specific [place] 1.025 Urine Protein 1+ H Urine Glucose (UA) Negative Urine Ketones Negative Ur Blood (Man) 3+ H Urine Nitrate Negative Urine Bilirubin Negative Urine Urobilinogen 0.2 Ur Leukocyte Esterase Trace H Urine RBC >75 H Urine WBC 31-50 H Ur Squamous Epith Cells Moderate H Urine Bacteria Trace Urine Mucus Few H OB - PN A/P Plan day: 3 Plan: routine care, discharge home and other Comments: Incision check in one week. Given precautions Time Spent With Patient Time: Total time spent is greater than 50% in coordination of care (as documented) at patient's floor/unit and/or counseling patient: Exam Const: General: comfortable, no acute distress and alert Resp: Effort & Inspection: normal respiratory effort Auscultation: no crack les, no rales and no rhonchi Cardio: Rate: regular rate Heart sounds: no click, no murmurs and no rubs GI: Inspection: non-distended GI Palp: No Tenderness to palpation present (GI) Auscultation: normal bowel sounds Other: Incision - CDI Extrem: General: normal to inspection, no pedal edema and no calf tenderness
--- NOTE | 2022-01-23 10:02 | PM.OBDSVD ---
DS: Admitting Diagnosis Discharge Date 01/23/22 Admitting Diagnosis preeclampsia DS: Discharge Diagnosis Discharge Diagnosis (1) Pre-eclampsia: Code(s): O14.90 - Unspecified pre-eclampsia, unspecified trimester Status: Acute (2) Term : Code(s): Z34.90 - Encounter for supervision of normal , unspecified, unspecified trimester Status: Acute OB - DS: Summary OB Procedures : NST OB Procedures Intrapartum: OB Procedures: : None Peripartum Data Procedures: Procedures Operation Date: 01/20/22 12:40 Actual Procedure Side Surgeon p Section Roslyn Richardson MD Time Spent with Patient Time attestation: Total time spent providing and/or coordinating discharge services: DS: Data Data Completed and Pending Pending studies at discharge: Pending at discharge 01/20/22 12:49 Surgical [PTH] Routine Labs on day of discharge: Labs from last 24 hours 01/22/22 23:45 Urine Color Dark yellow Urine Appearance Slightly cloudy Urine pH 6.0 Ur Specific [place] 1.025 Urine Protein 1+ H Urine Glucose (UA) Negative Urine Ketones Negative Ur Blood (Man) 3+ H Urine Nitrate Negative Urine Bilirubin Negative Urine Urobilinogen 0.2 Ur Leukocyte Esterase Trace H Urine RBC >75 H Urine WBC 31-50 H Ur Squamous Epith Cells Moderate H Urine Bacteria Trace Urine Mucus Few H Discharge Plan Discharge Discharging Clinician: Roslyn Richardson Patient Disposition: Home, Self-Care Activity: pelvic rest Diet: regular Patient Instructions: Antibiotic Form Stand Alone Forms: General Discharge Information Follow-up/Referrals: Roslyn Richardson MD [Physician] - Discharge Medications: New hydrocodone-acetaminophen 5-325 mg tablet 1 tablet PO Q4H PRN (Reason: pain) Qty: 25 0RF Continued famotidine [Pepcid AC] 10 mg Tablet 10 mg PO BID naopkzpqkx-kifmaizyxmkgv-onjg [Fioricet] 50-325-40 mg Tablet 1 tablet PO Q4-6H PRN (Reason: Headache) #2 Tablet 1 tablet PO DAILY ondansetron 4 mg Tablet,Disintegrating 4 mg PO Q6H PRN (Reason: Nausea) Qty: 10 0RF Date of admission: 01/18/22 10:10 Primary Care Provider: PHYSICIAN,STRETCHING PRESS OPERATOR Admitting Provider: Roslyn Richardson Attending physician on admission: Roslyn Richardson Condition: Stable
[2022-01-24 11:21] VITALS: PULSE 80; RESP 20; TEMP 37.1; O2SAT 98
--- NOTE | 2022-02-19 22:23 | WPDHPUPDATE1 ---
History and Physical Update Update Date/Time: 02/19/22 22:23 This patient is a 26-year-old 1 at History and Physical has been reviewed, including an updated exam of the patient. There are NO changes in the patient's condition. Risks, benefits, and alternatives have been discussed and questions answered. Patient agrees to proceed with procedure.
--- NOTE | 2022-02-19 22:33 | PM.IMHP ---
H&P: [facility] History of Present Illness Date/Time: 02/19/22 22:33 Chief Complaint: labor Narrative: This patient is a 26-year-old 1 at 37 weeks gestation. Her is complicated by growth restriction and preeclampsia. She had nonreassuring heart tones and we have agreed to proceed with delivery. She understands the risks. She understands that injuries may occur that result in hospitalization, more surgery, severe illness. She denies any nausea, vomiting, fever, chills. She denies any chest pain or shortness of breath. Review of Systems Review of Systems: All systems reviewed & are unremarkable except as noted in HPI and below Constitutional: Constitutional: Denies chills, Denies fatigue, Denies fever(s) and Denies weakness Eyes: Eyes: Denies blurry vision, Denies change in vision, Denies loss of peripheral vision, Denies loss of vision, Denies other visual disturbances and Denies eye pain ENT: Denies vertigo, Denies dizziness, Denies hearing loss, Denies mouth pain, Denies nasal obstruction, Denies neck mass and Denies neck pain Cardiovascular: Cardiovascular: Denies chest pain, Denies diaphoresis, Denies syncope, Denies leg edema and Denies dyspnea Respiratory: Respiratory: Denies chest congestion, Denies cough, Denies hemoptysis, Denies dyspnea and Denies wheezing Gastrointestinal: Gastrointestinal: Denies abdominal pain, Denies constipation, Denies diarrhea, Denies nausea and Denies vomiting Genitourinary: Genitourinary: Denies hematuria, Denies change in libido, Denies nocturia, Denies genital lesions, Denies flank pain and Denies urinary urgency Musculoskeletal: Musculoskeletal: Denies abnormal gait, Denies back pain, Denies myalgias, Denies arthralgias, Denies joint swelling, Denies muscle weakness and Denies neck pain Integumentary/Breasts: Skin/Breast: Denies swelling, Denies breast pain, Denies breast mass, Denies dry skin, Denies nipple discharge, Denies unusual bruising and Denies jaundice Neurologic: Denies Neuro-related abnormal movements, Denies Abnormal speech present, Denies abnormal gait, Denies behavioral changes, Denies confusion, Denies vertigo, Denies dizziness, Denies syncope, Denies loss of vision, Denies memory loss, Denies convulsions and Denies weakness Psychiatric: Psychiatric: Denies abnormal sleep pattern, Denies behavioral changes, Denies change in libido, Denies confusion, Denies depression, Denies anhedonia and Denies memory loss Endocrine: Endocrine: Reports no additional endocrine complaints, Denies change in libido and Denies fatigue Hematologic/Lymphatic: Hematologic/Lymphatic: Reports no additional hematologic/lymphatic complaints Allergic/Immunologic: Allergic/Immunologic: Reports no additional allergic/immunologic complaints and Denies wheezing PMFSH Family History Family History Father Esophageal cancer Grandparent Breast cancer in female Social History Social History Smoking status: Never smoker Substance use: never Spiritual care concerns: No Meds Home Medications and Allergies Home Medications Medication Instructions Recorded Confirmed Type xoxufhzuna-sihrudpbqlqyp-aeldlvgv 1 tablet PO Q4-6H PRN Headache 01/11/22 01/11/22 History 50 mg-325 mg-40 mg tablet famotidine 10 mg tablet (Pepcid AC) 10 mg PO BID 01/11/22 01/11/22 History prenat.vits,leticia,yjd-aier-vpevl 1 tablet PO DAILY 01/11/22 01/11/22 History ondansetron 4 mg disintegrating 4 mg PO Q6H PRN Nausea #10 tabs 01/16/22 Rx tablet hydrocodone 5 mg-acetaminophen 325 1 tablet PO Q4H PRN pain #25 tabs 01/23/22 Rx mg tablet Allergies Allergy/AdvReac Type Severity Reaction Status Date / Time Penicillins Allergy Unknown Verified 01/11/22 13:32 Exam Const: General: cooperative, healthy appearing, comfortable and no acute distress; No confusion Orien
== END 2022-01-23 11:25 | disposition home or self-care (01) | DRG 788 ==
LOC: ANHLDR 01-20 12:57 → ANHOB2 01-20 16:35
PROVIDERS: Advanced Practice Midwife; Admitting Provider Obstetrics & Gynecology; Visit Provider Obstetrics & Gynecology
PROC: 10D00Z1 Extraction of Products of Conception, Low, Open Approach (ICD-10-PCS; CPT 59514; principal; 2022-01-20 12:40)
DX: O36.8330 Maternal care for abnormalities of the fetal heart rate or rhythm, third trimester, not applicable or unspecified (principal); O14.14 Severe pre-eclampsia complicating childbirth; O76 Abnormality in fetal heart rate and rhythm complicating labor and delivery; Z3A.37 37 weeks gestation of pregnancy; Z37.0 Single live birth; Z88.0 Allergy status to penicillin
CPT/HCPCS: 36415; 59025; 80053; 81001; 81003; 82570; 83735; 84156; 84550; 85025; 86592; 86850; 86900; 86901; 87086; 87088; 88307; 99199; A9270; J0131; J0690; J1100; J1200; J1885; J2274; J2370; J2405; J2590; J2765; J2795; J3010; J3475; J7120

== ENCOUNTER 2023-08-04 12:53 | Emergency (ER) | payer OTHER, SELFPAY ==
[2023-08-04 13:06] VITALS: BP 134/66; PULSE 90; RESP 20; TEMP 36.7; O2SAT 98
--- NOTE | 2023-08-04 13:36 | ED.URI ---
HPI - URI/Sore Throat General Chief Complaint: Upper Respiratory Infection Stated Complaint: ear pain, possible upper resp inf Time Seen by Provider: 08/04/23 13:36 Source: patient, RN notes reviewed and old records reviewed Mode of arrival: ambulatory Limitations: no limitations History of Present Illness HPI Narrative: 28 year old female who presents to [facility] care with complaints of right ear pain,headache, cough, some sinus drainage and right ear pain with muffled hearing for the past 5 days. Patient reports that she has been taking NyQuil for her symptoms. Patient reports that she took home COVID test which was negative.Patient reports no known fevers, chills or any body aches, reports no shortness of breath. MD elicited complaint: cough, rhinorrhea, nasal congestion and other (right ear pain) Onset (ago): day(s) (5) Severity: moderate Description of mucous: clear Able to tolerate fluids by mouth: Yes Treatments prior to arrival: other (NyQuil, ) Related Data Allergies Allergy/AdvReac Type Severity Reaction Status Date / Time Penicillins Allergy Unknown Verified 01/11/22 13:32 Review of Systems Review of Systems: CONSTITUTIONAL: Denies malaise, chills, sweats, or fever. EYES: Denies visual changes, redness, or discharge. ENT: Reports rhinorrhea, congestion, sinus pain, right otalgia and sore throat. CARDIOVASCULAR: Denies chest pain, palpitations, or edema. RESPIRATORY: Reports cough.? Denies dyspnea. GASTROINTESTINAL: Denies abdominal pain, nausea, vomiting, diarrhea SKIN: Denies rash or itching. MUSCULOSKELETAL: Denies myalgia. NEUROLOGIC: Reports headache. All systems reviewed & are unremarkable except as noted in HPI and below PMFSH Past Medical History Medical History Migraine Family History Family History Father Esophageal cancer Grandparent Breast cancer in female Social History Social History Smoking status: Never smoker Substance use: never Spiritual care concerns: No Comments At time of signature, agree with nursing past medical, surgical, social and family history. There is no relevant family history pertinent to the presenting complaint Exam Narrative: GENERAL: Well-appearing, well-nourished, and in no acute distress. HEAD: Normocephalic EYES: PERRLA, conjunctivae clear ENT: Nares clear, turbinates edematous and erythematous, clear discharge. Mucous membranes moist.Right TM red and bulging, Left TM pearly gallagher with dull light reflex; no tragal tenderness. Oropharynx erythematous without lesions. Tonsils not enlarged and without exudate, no drooling, no hoarseness, no trismus, uvula midline. NECK: Supple. No lymphadenopathy CHEST: Clear to auscultation, breath sounds equal. No wheezing, rhonchi, rales, or stridor. No respiratory distress, speaks in full sentences.cough,SAO2 98% on room air HEART: Regular rate and rhythm. No murmur heard. SKIN: Warm, dry, no rash. NEURO: Alert and oriented x3. PSYCH: Normal mood and affect Course Course Emergency Course: Patient is aware of diagnosis, understands and agrees to treatment plan.? Anticipatory guidance given.? Patient agrees to follow-up as directed and is aware of reasons to seek care at the emergency department. Portions of this record may have been created with voice recognition software Level of Care: Express Care Visit Vital Signs Vital signs: Vital Signs Temperature 36.7 C 08/04/23 13:06 Pulse Rate 90 08/04/23 13:06 Respiratory Rate 08/04/23 13:06 Blood Pressure 134/66 08/04/23 13:06 Pulse Oximetry 98 08/04/23 13:06 Oxygen Delivery Room Air 08/04/23 13:06 Temperature 36.7 C 08/04/23 13:06 Pulse Rate 90 08/04/23 13:06 Respiratory Rate 08/04/23 13:06 Blood Pressure 134/66 08/04/23 1
== END 2023-08-04 13:56 | disposition home or self-care (01) ==
PROVIDERS: Emergency Provider Registered Nurse
DX: H66.91 Otitis media, unspecified, right ear (principal); J06.9 Acute upper respiratory infection, unspecified
CPT/HCPCS: 99213; G0463

== ENCOUNTER 2024-11-23 13:35 | Emergency (ER) | payer OTHER, SELFPAY ==
--- OUTSIDE RECORDS SUMMARY | 2024-11-23 13:38 | XMS_ITS | Referral Summary ---
Author Organization [facility] [place] [address] Address [address] [place] [address] Care Team Providers Care Nutrition Director Name Role Phone Venkat Richardson MD Primary Care Provider [phone] Allergies Active Allergy Reactions Criticality Noted Date Comments Penicillins Diarrhea Low 10/28/2021 Severe diarrhea as a child Medications butalbital-aceta minophen-caffein e (ESGIC) 50-325-40 mg per tablet TAKE 1 TABLET BY MOUTH EVERY 4 TO 6 HOURS NEEDED. MAX 6 TABS PER DAY 10/18/2021 Active vit-iron fum-folic ac 27 mg iron- 0.8 mg tablet 1 tablet daily Active famotidine (PEPCID) 10 mg tablet Take 10 mg by mouth 2 (two) times a day Active acetaminophen (TYLENOL) 325 mg tablet Take 650 mg by mouth every 6 (six) hours as needed for pain Active Active Problems Problem Noted Date Diagnosed Date PAC (premature atrial contraction) 10/28/2021 Palpitations 10/28/2021 Tachycardia, unspecified 10/28/2021 25 weeks gestation of 10/28/2021 Social History Tobacco Use Types Packs/Day Years Used Date Smoking Tobacco: Never Smokeless Tobacco: Never AUDIT-C Answer Date Recorded Q1: How often do you have a drink containing alc ohol? 2-4 times a month 10/28/2021 Q2: How many drinks containi ng alcohol do you have on a typical day when you are drinking? 1 or 2 10/28/2021 Q3: How often do you have si x or more drinks on one occasion? Never 10/28/2021 Personal Safety Answer Date Recorded Getting School Help Needed Not on file 07/25 Comments Unknown Sex and Gender Information Value Date Recorded Sex Assigned at Not on file Legal Sex Female 3:41 PM CDT Gender Identity Not on file Sexual Orientation Not on file Last Filed Vital Signs Vital Sign Reading Time Taken Comments Blood Pressure 126/74 08/09/2023 11:33 AM ENVIRONMENTAL EMERGENCIES PLANNER Pulse 97 08/09/2023 11:33 AM ENVIRONMENTAL EMERGENCIES PLANNER Temperature 36.8 C (98.2 F) 08/09/2023 11:33 AM ENVIRONMENTAL EMERGENCIES PLANNER Respiratory Rate 18 08/09/2023 11:33 AM ENVIRONMENTAL EMERGENCIES PLANNER Oxygen Saturation 99% 08/09/2023 11:33 AM ENVIRONMENTAL EMERGENCIES PLANNER Inhaled Oxygen Concentration - - Weight 79.4 kg (175 lb) 08/09/2023 11:33 AM ENVIRONMENTAL EMERGENCIES PLANNER Height 162.6 cm (5' 4 ) 08/09/2023 11:33 AM ENVIRONMENTAL EMERGENCIES PLANNER Body Mass Index 30.04 08/09/2023 11:33 AM ENVIRONMENTAL EMERGENCIES PLANNER Plan of Treatment Not on file Insurance [employer] * Guarantor: CHELSEA FLOR Account Type Relation to Patient Date of Phone Billing Address Personal/Family 1995 [address] [place] [address] [employer] Care Teams Nutrition Director Relationship Specialty Start Date End Date Venkat Richardson MD [address], [place] [id number] PCP - General Obstetrics and Gynecology 10/14/21
--- OUTSIDE RECORDS SUMMARY | 2024-11-23 13:38 | XMS_ITS | Clinical Summary ---
Author Organization [facility] [place] [address] Address [address] [place] [address] Care Team Providers Care Salesperson Wigs Name Role Phone Venkat Richardson MD Primary Care Provider [phone] Allergies Active Allergy Reactions Criticality Noted Date [...] unspecified 10/28/2021 25 weeks gestation of 10/28/2021 Surgical History Surgery Date Site/Laterality Comments SECTION Family History Medical History Relation Name Comments Hypertension Father Throat cancer Father No Known Problems Mother Relation Name Status Comments Father Alive Mother Alive Sister 1 Alive Sister 2 Alive Social History Tobacco Use Types Packs/Day Years [...] on file Sexual Orientation Not on file Obstetrics History Last Filed Vital Signs Vital Sign Reading Time Taken Comments Blood Pressure 126/74 08/09/2023 11:33 AM [employer]VAS C[employer]TER [employer] Pulse 97 08/09/2023 11:33 AM [employer] Temperature 36.8 C (98.2 F) 08/09/2023 11:33 AM [employer] Respiratory Rate 18 08/09/2023 11:33 AM [employer] Oxygen Saturation 99% 08/09/2023 11:33 AM [employer] Inhaled Oxygen Concentration - - Weight 79.4 kg (175 lb) 08/09/2023 11:33 AM [employer] Height 162.6 cm (5' 4 ) 08/09/2023 11:33 AM [employer] Body Mass Index 30.04 08/09/2023 11:33 AM [employer] Plan of Treatment Health Maintenance Due Date Last Done Comments Cervical Cancer Screening 1996 Depression Screening 1996 Hepatitis C Screening 1996 Varicella Vaccines (1 of 2 - 13+ 2-dose series) 2009 Hepatitis B Screening 2014 Regular Well Visit/Exam 18-64 2014 Influenza Vaccine (#1) 2024 DTaP/Tdap/Td Vaccine (2 - Td or Tdap) 12/01/2031 11/30/2021 HPV Vaccines Aged Out No longer eligi ble based on patient's age to complete this topic Pneumococcal vaccine <65 Aged Out No longer eligible based on patient's age to complete this topic Insurance [employer] * Guarantor: CHELSEA FLOR Type Relation to Patient Date of Phone Billing Address Personal/Family 1995 [facility] [place] [address] [employer] Care Teams Salesperson Wigs Relationship Specialty Start Date End Date Venkat Richardson MD [address] [place], [place] [id number] PCP - General Obstetrics and Gynecology 10/14/21
--- OUTSIDE RECORDS SUMMARY | 2024-11-23 13:39 | XMS_ITS | Clinical Summary ---
Author Organization [facility] Address [address] [place] [address] Care Team Providers Care Carbon Grinder Name Role Phone Unavailable Primary Care Provider Unavailabl e Source Comments [facility],non-owned Affiliates and Associated Physician Practices is amultiple site organization consisting of ambulatory clinics and hospital sitesin [place], [place], [place] and [place]. This disclosure is being madepursuant to the Care Everywhere program and may not contain all information available regarding this patient. Last updated 18.[facility] Allergies No known active allergies Medications * Be aware that medications may not be up to date on this document. Alwaysverify current medications with the patient. butalbital-acet aminophen-caffe ine (FIORICET) 50-325-40 MG tabletIndicatio ns:Migraines. Take 1 tablet by mouth every 4 hours as needed for Headache Reasons: Migraines. Active Active Problems Problem Noted Date Diagnosed Date IUGR (intrauterine growth re striction) affecting care of mother, second trimester, not applicable or unspecified fetus 10/18/2021 Social History Tobacco Use Types Packs/Day Years Used Date Smoking Tobacco: Never Assessed Comments No Sex and Gender Information Value Date Recorded Sex Assigned at Not on file Legal Sex Female 4:49 PM CDT Gender Identity Not on file Sexual Orientation Not on file Last Filed Vital Signs Vital Sign Reading Time Taken Comments Blood Pressure 127/70 12/09/2021 10:42 AM CDT Pulse 88 12/09/2021 10:42 AM CDT Temperature - - Respiratory Rate - - Oxygen Saturation - - Inhaled Oxygen Concentration - - Weight - - Height - - Body Mass Index - - Plan of Treatment Health Maintenance Due Date Last Done Comments PAP SMEAR 1995 HEPATITIS C SCREENING 03/22/2014 DTAP/TDAP/TD VACCINES (1 - Tdap) 2015 HEPATITIS B VACCINE (1 of 3 - 19+ 3-dose series) 2015 COVID-19 VACCINE (1 - 2023-2 5 season) 2024 DEPRESSION SCREENING 07/23/2024 INFLUENZA VACCINE (Season Ended) 2025 ZOSTER VACCINE (1 of 2) 2046 HIV SCREENING Completed 11/23/2021, 08/02/2021 HIB VACCINE Aged Out No longer eligi ble based on patient's age to complete this topic HPV VACCINE Aged Out No longer eligi ble based on patient's age to complete this topic MENINGOCOCCAL (Group B) VACCINE SHARED DECISION-MAKING Aged Out No longer eligible based on patient's age to complete this topic MENINGOCOCCAL GROUPS A/C/Y/W VACCINE Aged Out No longer eligible b ased on patient's age to complete this topic PNEUMOCOCCAL VACCINE Aged Out No long er eligible based on patient's age to complete [place] [id number] [facility] [employer]
--- OUTSIDE RECORDS SUMMARY | 2024-11-23 13:39 | XMS_ITS | Data Portability ---
Author Organization [facility] [place] Address [address] [place] [address] Assessment Encounter Date Assessment Date Assessment LastModified by Organization Details LastModified Time 01/18/2022 01/18/2022 Patient is _35__weeks . Discussed plan. Not available 01/18/2022 11:36:59 02/29/2024 02/29/2024 Annual gynecological exam performed. Patient will come back in a year unless there are new symptoms. [email or web address] Not available 02/29/2024 09:40:12 Plan of Treatment Reminders Order Date Submit Date Provider Last Modified By Organization Details Last Modified Time Details Appointments None record ed. Lab None record ed. Referral None record ed. Procedures None record ed. Surgeries None record ed. Imaging None record ed. Medication Orders None record ed. Patient TargetsNo targets recorded. Patient InstructionsNo instructions recorded. Reason for Referral None Reported. Results Created Date Observation Date Name Description Value Unit Range Abnormal Flag Note LastModifiedBy Organization Detail LastModifiedTime 01/05/2001/04/2022 URIC ACID uric acid 3.8 mg/dL 2.3-6. [address] [facility] [place] (Lab) [address], [place], [address], 01/05/2022 06:21:24 01/05/20 22 01/04/2022 CMP(C OMPRE HENSI VE METAB OLIC PANEL ) sodium 138 mmol/ L 133-[address] [facility] [place] (Lab) [address], [place], [address], 01/05/2022 06:21:24 01/05/20 22 01/04/2022 CMP(C OMPRE HENSI VE METAB OLIC PANEL ) potassium 4.0 mmol/ L 3.5-5. [address] [facility] [place] (Lab) [address] [facility], [place], [address], 01/05/2022 06:21:24 01/05/20 22 01/04/2022 CMP(C OMPRE HENSI VE METAB OLIC PANEL ) chloride 104 mmol/ L 98-[address] [facility] [place] (Lab) [address] [facility], [place], [address], 01/05/2022 06:21:24 01/05/20 22 01/04/2022 CMP(C OMPRE HENSI VE METAB OLIC PANEL ) carbon dioxide 22 mmol/ L 21-[address] [facility] [place] (Lab) [address] [facility], [place], [address], 01/05/2022 06:21:24 01/05/20 22 01/04/2022 CMP(C OMPRE HENSI VE METAB OLIC PANEL ) anion gap 12 mmol/ L 4-[address] [facility] [place] (Lab) [address] [facility], [place], [address], 01/05/2022 06:21:24 01/05/20 22 01/04/2022 CMP(C OMPRE HENSI VE METAB OLIC PANEL ) blood urea nitrogen 10 mg/dL 7-25 Not Available [facility] (Lab) [address] [facility], [place], [address], 01/05/2022 06:21:24 01/05/20 22 01/04/2022 CMP(C OMPRE HENSI VE METAB OLIC PANEL ) creatinine 0.68 mg/dL 0.60-[address] [facility] [place] (Lab) [address] [facility], [place], [address], 01/05/2022 06:21:24 01/05/20 22 01/04/2022 CMP(C OMPRE HENSI VE METAB OLIC PANEL ) egfrcr (CKD-epi 2020) >90 mL/mi n/1.7 3_m2 >=[address] [facility] [place] (Lab) [address] [facility], [place], [address], 01/05/2022 06:21:24 01/05/20 22 01/04/2022 CMP(C OMPRE HENSI VE METAB OLIC PANEL ) calcium 9.2 mg/dL 8.3-[address] [facility] [place] (Lab) [address] [facility], [place], [address], 01/05/2022 06:21:24 01/05/20 22 01/04/2022 CMP(C OMPRE HENSI VE METAB OLIC PANEL ) glucose 62 mg/dL 70-[address] [facility] [place] (Lab) [address] [facility], [place], [address], 01/05/2022 06:21:24 01/05/20 22 01/04/2022 CMP(C OMPRE HENSI VE METAB OLIC PANEL ) protein, total 6.5 g/dL 6.4-8. [address] [facility] [place] (Lab) [address] [facility], [place], [address], 01/05/2022 06:21:24 01/05/20 22 01/04/2022 CMP(C OMPRE HENSI VE METAB OLIC PANEL ) albumin 3.4 g/dL 3.5-5. [address] [facility] [place] (Lab) [address] [facility], [place], [address], 01/05/2022 06:21:24 01/05/20 22 01/04/2022 CMP(C OMPRE HENSI VE METAB OLIC PANEL ) ALT 11 units /L 9-[address] [facility] [place] (Lab) [address] [facility], [place], [address], 01/05/2022 06:21:24 01/05/20 22 01/04/2022 CMP(C OMPRE HENSI VE METAB OLIC PANEL ) alkaline phosphatase 109 units /L 34-[address] [facility] [place] (Lab) [address] [facility], [place], [address], 01/05/2022 06:21:24 01/05/20 22 01/04/2022 CMP(C OMPRE HENSI VE METAB OLIC PANEL ) AST 14 units /L 13-[address] [facility] [place] (Lab) [address] [place], [address], 01/05/2022 06:21:24 01/05/20 22 01/04/2022 CMP(C OMPRE HENSI VE METAB OLIC PANEL ) bilirubin, total 0.2 mg/dL 0.2-1. [address] [facility] [place] (Lab) [address] [facility], [place], [address], 01/05/2022 06:21:24 01/05/20 22 01/04/2022 CBC W/DIF F WBC 17.0 10'3/ uL 3.6-10 .[address] [facility] [place] (Lab) [address] [facility], [place], [address], 01/05/2022 06:21:25 01/05/20 22 01/04/2022 CBC W/DIF F RBC 4.10 10'6/ uL (based on docume nted legal sex) 4.10-[address] [facility] (Lab) [address] [place], [address], 01/05/2022 06:21:25 01/05/20 22 01/04/2022 CBC W/DIF F HGB 13.2 g/dL (based on docume nted legal sex) 11.9-[address] [facility] (Lab) [address] [place], [address], 01/05/2022 06:21:25 01/05/20 22 01/04/2022 CBC W/DIF F HCT 41.4 % (based on docume nted legal sex) 37.4-[address] [facility] [place] (Lab) [address] [facility], [place], [address], 01/05/2022 06:21:25 01/05/20 22 01/04/2022 CBC W/DIF F MCV 102.0 fL 82.0-9 9[address] [facility] [place] (Lab) [address] [facility], [place], [address], 01/05/2022 06:21:25 01/05/20 22 01/04/2022 CBC W/DIF F MCH 33.0 pg 27.0-[address] [facility] [place] (Lab) [address] [facility], [place], [address], 01/05/2022 06:21:25 01/05/20 22 01/04/2022 CBC W/DIF F MCHC 32.0 g/dL 32.0-[address] [facility] [place] (Lab) [address] [facility], [place], [address], 01/05/2022 06:21:25 01/05/20 22 01/04/2022 CBC W/DIF F RDW 14.0 % 11.0-[address] [facility] [place] (Lab) [address] [facility], [place], [address], 01/05/2022 06:21:25 01/05/20 22 01/04/2022 CBC W/DIF F plt 304 10'3/ uL 150-[address] [facility] [place] (Lab) [address] [facility], [place], [address], 01/05/2022 06:21:25 01/05/20 22 01/04/2022 CBC W/DIF F MPV 11.6 fL 9.8-[address] [facility] [place] (Lab) [address] [place], [address], 01/05/2022 06:21:25 01/05/20 22 01/04/2022 CBC W/DIF F NRBC's 0.00 % [address] [facility] [place] (Lab) [address] [facility], [place], [address], 01/05/2022 06:21:25 01/05/20 22 01/04/2022 CBC W/DIF F absolute NRBCs 0.0 10'3/ uL [address] [facility] [place] (Lab) [address] [facility], [place], [address], 01/05/2022 06:21:25 01/05/20 22 01/04/2022 CBC W/DIF F neutrophils 78.0 % 37.0-7 2[address] [facility] [place] (Lab) [address] [facility], [place], [address], 01/05/2022 06:21:25 01/05/20 22 01/04/2022 CBC W/DIF F lymphocytes 13.0 % 16.0-4 [address] [facility] [place] (Lab) [address] [facility], [place], [address], 01/05/2022 06:21:25 01/05/20 22 01/04/2022 CBC W/DIF F monocytes 9.0 % 4.0-[address] [facility] [place] (Lab) [address] [facility], [place], [address], 01/05/2022 06:21:25 01/05/20 22 01/04/2022 CBC W/DIF F eosinophils 0.0 % 0.0-9. [address] [facility] [place] (Lab) [address] [place], [address], 01/05/2022 06:21:25 01/05/20 22 01/04/2022 CBC W/DIF F basophils 0.0 % 0.0-2. [address] [facility] [place] (Lab) [address] [place], [address], 01/05/2022 06:21:25 01/05/20 22 01/04/2022 CBC W/DIF F immature granulocytes 0.0 % no define d refere nce range Not Available [facility] [place] (Lab) [address] [facility], [place], [address], 01/05/2022 06:21:25 01/05/20 22 01/04/2022 CBC W/DIF F absolute neutrophils 13.1 10'3/ uL 1.1-6. [address] [facility] [place] (Lab) [address] [place], [address], 01/05/2022 06:21:25 01/05/20 22 01/04/2022 CBC W/DIF F absolute lymphocytes 2.3 10'3/ uL 0.7-3. [address] [facility] [place] (Lab) [address] [facility], [place], [address], 01/05/2022 06:21:25 01/05/20 22 01/04/2022 CBC W/DIF F absolute monocytes 1.5 10'3/ uL 0.3-1. [address] [facility] [place] (Lab) [address] [facility], [place], [address], 01/05/2022 06:21:25 01/05/20 22 01/04/2022 CBC W/DIF F absolute eosinophils 0.1 10'3/ uL 0.0-0. [address] [facility] [place] (Lab) [address] [place], [address], 01/05/2022 06:21:25 01/05/20 22 01/04/2022 CBC W/DIF F absolute basophils 0.1 10'3/ uL 0.0-0. [address] [facility] [place] (Lab) [address] [place], [address], 01/05/2022 06:21:25 01/05/20 22 01/04/2022 CBC W/DIF F absolute immature granulocytes 0.10 10'3/ uL 0.00-0 .10 2021 4:37 AM: P indic ates parti al resul ts on a panel have been relea sed. Addit ional resul ts will deejay w. 2021 4:37 AM: This resul t has been final verif ied. No addit ional or aleman ed resul ts are expec brad. Not Available [facility] [place] (Lab) [address] [facility], [place], [address], 01/05/2022 06:21:25 01/05/20 22 01/04/2022 PROTE IN/CR EATIN INE RATIO , URINE creatinine, urine 103.5 mg/dL R-No refer ence range estab lishe d for this assay Not Available [facility] [place] (Lab) [address] [facility], [place], [address], 01/05/2022 06:21:25 01/05/20 22 01/04/2022 PROTE IN/CR EATIN INE RATIO , URINE protein, urine 11 mg/dL R-No refer ence range estab lishe d for this assay Not Available [facility] [place] (Lab) [address] [facility], [place], [address], 01/05/2022 06:21:25 01/05/20 22 01/04/2022 PROTE IN/CR EATIN INE RATIO , URINE protein/crea tinine ratio, urine 0.11 . No Refer ence Range avail able for Rando m Urine s. A prote in to creat inine ratio of >=0.1 9 is a good predi ctor of signi fican t prote inuri a. A level of <0.14 can rule out signi fican t prote inuri a. Not Available [facility] [place] (Lab) [address] [facility], [place], [address], 01/05/2022 06:21:25 01/13/20 22 01/12/2022 CULTU RE: GROUP B STREP SCREE N, REFLE X SUSCE PTIBI LITY result report SEE RESULT S BELOW Test: Cultu re: Group B Strep , Refle x Susce ptibi lity ([facility]/ [facility] ) Speci men Sourc e: Vagin a/Rec ellie Speci men Type: Vagin al/Re ctal Speci men Date: 2021 1:04 PM Resul t Date: 2021 11:36 AM Resul t Statu s: Final resul t Abnor mal: No Resul ting Lab: [facility] [address] [facility] [address] Tel: [phone] CULTU RE ----- ----- ----- --- No Group B strep isola brad at 2 days (marcus ctive broth enhan cemen t) Not Available [facility] [place] (Lab) [address] [facility], [place], [address], 01/15/2022 12:39:16 01/28/20 22 01/27/2022 CULTU RE: URINE result report SEE RESULT S BELOW Test: Cultu re: Urine Speci men Sourc e: Urine Voide d Speci men Type: Urine Speci men Date: 10:12 AM Resul t Date: 9:59 PM Resul t Statu s: Final resul t Abnor mal: No Resul ting Lab: [facility] [address] [facility] [address] Tel: [phone] CULTU RE ----- ----- ----- --- No growt h in 1 day (dete ction level of 10,00 0 colon ies / ml.) Not Available [facility] [address] [place], [address], 01/28/2022 23:03:36 01/28/20 22 01/27/2022 urina lysis , dipst ick Blood +++ Not Available [place] [address], [place], [address], 01/27/2022 10:33:48 02/29/20 24 02/29/2024 IMAGE GUIDE D PAP, REFLE X HPV IF ASCUS ONLY image guided Pap, reflex HPV ASCUS only SEE RESULT S BELOW CASE REPOR T: Cytol ogy Gynec ologi leticia Repor t Case: [id number] Autho chayo maxwell Provi vandana: Jorge Del Castillo MD Colle cted: 02/28 1036 Order ing Locat ion: [place] Path[facility] logjameel Messina eboni: 03/03 1227 First Scree n: Christiano Tafoya, [place] Speci men: Scree rogers Pap - Image d, Cervi x STATE MENT OF ADEQU ACY: Satis facto ry for evalu ation Trans forma tion zone compo nent prese nt ----- ----- ----- ----- ----- ----- ----- ----- ----- ----- ----- ----- ----- ----- ----- ----- ----- ---- FINAL DIAGN OSIS: Negat quintin for Intra epith elial Beryl jesus or Serenity ponce (NIL) . Elect aleyda brody d by Christiano Tafoya, [place] on 2023 at 7:57 AM ----- ----- ----- ----- ----- ----- ----- ----- ----- ----- ----- ----- ----- ----- ----- ----- ----- ---- COMME NT: This speci men was revie wed by a Cytot echno logis t and/o r Patho logis t (as indic ated in this repor t) after evalu ation using the Thinp rep Imagi ng Syste m. CLINI LETICIA INFOR MATIO N: Menst rual Statu s: LMP (if appli cable ): Clini leticia Histo ry/Pr eviou s Pap: Type of Neopl gertrude (if appli cable ): Signi fican t Clini leticia Findi ngs: Other Histo ry: Hormo james (if appli cable ): PAP EDUCA JAZMIN L NOTE: The Pap Test is a scree rogers test with an inher ent false negat quintin rate. Liqui d-bas ed sampl ing may decre ase, but will not elimi robert, false negat quintin resul ts. A negat quintin resul t does not precl ude the prese nce and/o r devel opmen t of disea se, since the prese nce of abnor mal cells in the sampl e depen ds on the locat ion of the lesio n and sampl ing techn ique. Arnold nued regul ar scree rogers is the best metho d of cance r preve ntion . If repor brad cytol ogic findi ng do not corre late with physi leticia and/o r histo rical findi ngs, furth er inves tigat ion is recom deena d, as clini janusz yen nted. Not Available [facility] [place] (Lab) [address] [facility], [place], [address], 03/08/2024 09:01:44 12/13/19 22 12/09/2021 US, obste tric, follo w-up No observ ation record ed. [email or web address] [place] [address], [place], [address], 12/12/2021 09:32:32 12/17/19 22 12/16/2021 US, obste tric, follo w-up No observ ation record ed. [email or web address] [facility] [address] [place] [address], [address], 12/20/2021 12:13:24 12/17/19 22 12/16/2021 US, obste tric, follo w-up No observ ation record ed. [facility] [place] [address] [place], [address], 12/20/2021 10:30:18 01/07/20 22 01/06/2022 US, obste tric, follo w-up No observ ation record ed. [email or web address] [facility] [address] [place] [address], [address], 01/30/2022 11:15:28 01/10/20 22 01/06/2022 US, obste tric, follo w-up No observ ation record ed. [email or web address] [facility] [address] [place], [address], 01/09/2022 11:28:28 Result Notes None recorded. Problems Name Problem SNOMED Code Status Onset Date Resolution Date Notes Provider Name and Address Organization Details Recorded Time Contrace ption care manageme nt Completed 201703/17/2021 Encounter for contracep tive managemen t, unspecifi ed;Record ed Elsewhere : No Locati on: [facility] So urce: EHR Chron ic: N Practic e ID: 0001 Bill able Time: 09:15:00 AM Mica [facility] 10:40:33 Speciali d medical examinat ion Completed 201403/17/2021 Gynecolog ical Examinati on;Record ed Elsewhere : No Locati on: [facility] So urce: EHR Chron ic: N Practic e ID: 0001 Bill able Time: 12:00:00 PM Micabritta [facility] 10:40:52 Body mass index 25-29 - [place] [id number] Completed 201703/17/2021 Body mass index (BMI) 27.0-27.9 , adult;Rec orded Elsewhere : No Locati on: [facility] So urce: EHR Chron ic: N Practic e ID: 0001 Bill able Time: 11:30:00 AM Mica [facility] 10:40:[address] Concept Completed 201803/17/2021 Encntr for routine child health exam w/o abnormal findings; Recorded Elsewhere : No Locati on: [facility] So urce: EHR Chron ic: N Practic e ID: 0001 Bill able Time: 10:15:00 AM Mica mckeon [facility] 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 10:40:48 Well child [id number] Completed 201403/17/2021 Routine or child health check;Pra ctice ID: [id number] Mica mckeon [facility] 10:40:56 Implanta tion of subcutan eous contrace ptive Completed 201403/17/2021 Insertion of implantab le subdermal contracep tive;Prac jonelle ID: 0001 Mica mckeon [facility] 10:40:38 Pregnanc y test negative [id number] Completed 201403/17/2021 Negative Test;Prac jonelle ID: 0001 Mica mckeon [facility] 10:40:40 Procedur e Completed 201703/17/2021 Enctr srvlnc implantab le subdermal contracep tive;Prac jonelle ID: 0001 Mica mckeon [facility] 10:40:[address] Concept Completed 201703/17/2021 Encounter for surveilla nce of other contracep tives;Pra ctice ID: [id number] [facility] 10:40:50 Subcutan eous contrace ptive implant present [id number] Completed 201403/17/2021 Surveilla nce of implantab le subdermal contracep tive;Delano rded Elsewhere : No Locati on: [facility] So urce: EHR Chron ic: N Practic e ID: 0001 Bill able Time: 10:45:00 AM Mica mckeon [facility] [address] 10:40:[address] Concept Completed 201703/17/2021 Encntr for general adult medical exam w/o abnormal findings; Recorded Elsewhere : No Locati on: [facility] So urce: EHR Chron ic: N Practic e ID: 0001 Bill able Time: 11:30:00 AM Mica mckeon [facility] 1 10:40:45 Pregnanc y [id number] Completed 202102/14/2022 [facility], [facility] 2 13:21:15 growth restrict ion [id number] Completed MFM referral faxed 10/12 [facility], [facility] 2 13:21:05 Tachycar erika [id number] Completed Cardio consult in chart- they ordered 2D echo for pt! Make sure pt completes this! f/u cardio 2mo [facility], [facility] 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 2 13:21:05 Hypoglyc emia [id number] Completed 2021 small freq meals, precautio ns given [facility], [facility] 2 13:21:05 Notes:MFM & cardiology refer ral sent 10/12 Problem Notes None recorded. Procedures Surgical History Date Name Laterality Status Provider Name and Address Organization Details Recorded Time 2 Caesarean Section completed Navya Jones [facility] 02/29/2024 09:41:08 1 Date of Last Pap Smear completed Ysabel Ortega [facility] 07/05/2021 09:38:52 Imaging Results Imaging Date Name Status LastModified by Organiz ation Details LastModified Time 12/09/2021 US, obstetric, follow-up completed [email or web address] [facility] [address], [place], [address], 12/12/2021 09:32:32 12/16/2021 US, obstetric, follow-up completed [email or web address] [facility] [address], [address], 12/20/2021 12:13:24 12/16/2021 US, obstetric, follow-up completed [email or web address] [facility] [address] [place] [address], [address], 12/20/2021 10:30:18 01/06/2022 US, obstetric, follow-up completed [email or web address] [facility] [address] [place] [address], [address], 01/30/2022 11:15:28 01/06/2022 US, obstetric, follow-up completed [email or web address] [facility] [address], [address], 01/09/2022 11:28:28 Procedure Notes None recorded. Medical Equipment None Reported. Allergies Allergen ID Allergen Name Allergen Category Reaction Reaction Severity Criticality Documentation Date Start Date Code Code System Note Provider Name and Address Organization Details Recorded Time 02930 Product containin g penicilli n (product) medicatio n Not available Not available Not available 07/09/2020 27914 8001 SNOMED Ysabel mckeon [facility] 11:41:05 Medications Name Sig Start Date Stop Date Status Note LastModified by Organization Details LastModified Time azithromy wade 250 mg tablet TAKE 2 TABLETS BY MOUTH TODAY, THEN TAKE 1 TABLET DAILY FOR 4 DAYS 02/28 completed Not Available Not Available Not Available hydrocodo ne 5 mg-acetam inophen 325 mg tablet TAKE 1 TABLET BY MOUTH EVERY 4 HOURS NEEDED FOR PAIN 02/28 completed Not Available Not Available Not Available valacyclo vir 500 mg tablet TAKE 1 TABLET BY MOUTH EVERY DAY 02/28 completed Not Available Not Available Not Available butalbita l-acetami nophen-ca ffeine 50 mg-325 mg-40 mg tablet TAKE 1 TABLET BY MOUTH EVERY 4-6 HOURS NEEDED FOR MIGRAINE . MAX 6/DAY 02/28 completed Not Available Not Available Not Available Loestrin 1/20 (21) 1 mg-20 mcg tablet take 1 tablet by oral route every day 03/17 completed Prescrib ed Elsewher e: No [facility] odify By: [email or web address] Encounte r DateTime : 05/20/20 08:30:00 AM Not Available Not Available Not Available ondansetr on 4 mg disintegr ating tablet 02/28 completed Not Available Not Available Not Available cefdinir 300 mg capsule TAKE 1 CAPSULE (300 MG TOTAL) BY MOUTH TWO TIMES A DAY FOR 7 DAYS. 02/28 completed Not Available Not Available Not Available Loestrin Fe 1.5/30 (28-Day) 1.5 mg-30 mcg (21)/75 mg (7) tablet take 1 tablet by oral route every day 03/17 completed Prescrib ed Elsewher e: No [facility] odify By: lillian escalante DateTime : 07/14/20 10:15:00 AM Not Available Not Available Not Available 02/28 completed Not Available Not Available Not Available cephalexi n 750 mg capsule take 1 capsule by oral route 2 times every day 07/14 completed Prescrib ed Elsewher e: No [facility] odify By: [email or web address] DateTime : 05/20/20 08:30:00 AM Not Available Not Available Not Available Nexplanon 68 mg subdermal implant 07/14 completed Prescrib bruce hardy: Yes Loca tion: Milagrolioguerda hardy [facility] M odify By: [email or web address] z Encoun ter DateTime : 04/17/20 11:30:00 AM Not Available Not Available Not Available Fioricet 50 mg-300 mg-40 mg capsule Take 1 capsule every 4-6 hours by oral route as needed. 02/28 completed Not Available Not Available Not Available semagluti de (weight loss) active Not Available Not Available Not Available Vitals Date Recorded Body height Body mass index (BMI) Body weight Systolic blood pressure Diastolic blood pressure Provider Name and Address Organization Details Last Updated DateTime 01/12/2022 160.02 cm 34.4 kg/m2 63505.91 978 g 122 mm[Hg] 72 mm[Hg] Susana Ma [facility] 2 11:50:42 Date Recorded Body height Body mass index (BMI) Body weight Systolic blood pressure Diastolic blood pressure Systolic blood pressure Diastolic blood pressure Provider Name and Address Organization Details Last Updated DateTime 160.02 cm 34.9 kg/m2 72612.6 9689 g 156 mm[Hg] 88 mm[Hg] 180 mm[Hg] 100 mm[Hg] Kerry Coffey [facility] 2 10:41:04 Date Recorded Body height Body mass index (BMI) Systolic blood pressure Diastolic blood pressure Provider Name and Address Organization Details Last Updated DateTime 01/27/2022 160.02 cm 32.2 kg/m2 122 mm[Hg] 75 mm[Hg] Mica Pelletier [facility] 01/27/2022 09:56:34 Date Recorded Body weight Provider Name an d Address Organization Details Last Updated DateTime 01/27/2022 37938.07727 g Erinn Beverly [facility] 02/14/2022 13:21:08 Date Recorded Body height Body mass index (BMI) Body weight Systolic blood pressure Diastolic blood pressure Provider Name and Address Organization Details Last Updated DateTime 03/10/2022 160.02 cm 30.6 kg/m2 16728.48 g 119 mm[Hg] 73 mm[Hg] Mica Pelletier [facility] 2 11:41:03 Date Recorded Body height Body mass index (BMI) Body weight Systolic blood pressure Diastolic blood pressure Provider Name and Address Organization Details Last Updated DateTime 02/29/2024 160.02 cm 28.3 kg/m2 72601.06 g 114 mm[Hg] 74 mm[Hg] Navya Robert [facility] 4 09:40:30 Social History Question Answer Notes LastModified by Organizat ion Details LastModified Time Tobacco Smoking Status Never Smoker Raquel mckeon [facility] 09/28/2021 09:27:09 Do You Have An Advance Directive? No Information not available 03/17/2021 What Is Your Level Of Alcohol Consumption? Occasional Information not available 03/17/2021 How Many Years Have You Consumed Alcohol? 7 Information not available 02/29/2024 Are You Blind Or Do You Have Difficulty Seeing? No Information not available 03/17/2021 What Is Your Level Of Caffeine Consumption? Moderate Information not available 03/17/2021 How Much Tobacco Do You Chew? None Information not available 03/17/2021 In The 14 Days Before Symptom Onset, Have You Had Close Contact With A Laboratory-confir med COVID-19 While That Case Was Ill? No Information not available 03/17/2021 In The 14 Days Before Symptom Onset, Have You Had Close Contact With A Person Who Is Under Investigation For COVID-19 While That Person Was Ill? No Information not available 03/17/2021 Have You Been To An Area Known To Be High Risk For COVID-19? No Information not available 03/17/2021 Are You Deaf Or Do You Have Serious Difficulty Hearing? No Information not available 03/17/2021 What Type Of Diet Are You Following? REGULAR Information not available 03/17/2021 What Is The Highest Grade Or Level Of School You Have Completed Or The Highest Degree You Have Received? 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 No Information not available 03/17/2021 Have You Ever Been Counseled For Unhealthy Alcohol Use? No [email or web address] Information not available 10/26/2021 Do You Use Protection During Sex? No Information not available 03/17/2021 Do You Use Your Seat Belt Or Car Seat Routinely? Yes Information not available 03/17/2021 Do You Have Smoke And Carbon Monoxide Detectors In Your Home? Yes Information not available 03/17/2021 How Much Tobacco Do You Smoke? No Information not available 03/17/2021 Do You Feel Stressed (tense, Restless, Nervous, Or Anxious, Or Unable To Sleep At Night)? [id number] [email or web address] Information not available 03/29/2021 Do You Use Any Illicit Or Recreational Drugs? No Information not available 03/17/2021 Do You Use Sunscreen Routinely? No Information not available 03/17/2021 Have You Used IV Drugs? No Information not available 03/17/2021 Do You Or Have You Ever Used Any Other Forms Of Tobacco Or Nicotine? No [email or web address] Information not available 10/26/2021 Sex: Unknown Functional Status Question Answer Note LastModified by Organizat ion Details LastModified Time Do you have difficulty walking or climbing stairs? No Information not available 09/28/2021 Are you able to walk? YESWOREST Information not available 03/17/2021 Are you able to care for yourself? Yes [email or web address] Information not available 09/28/2021 Do you have difficulty dressing or bathing? No [email or web address] Information not available 09/28/2021 What is your exercise level? Moderate Information not available 03/17/2021 Mental Status None recorded. Family History Relationship Description Onset Age of this Age Resolved Age Notes LastModified by Organization Details LastModified Time Maternal Grandmother Malignant tumor of breast Not available 2020 10:41:23 Notes:Cancer risk form compl ete 03/15/2021 Medical History Condition Response Allergies (Food, seasonal, environmental ) N Other N Breast Cancer N Drug/Latex Allergies/Reactions N Blood Transfusion N Dermatologic Disorders N Lung Disease N Defects or Inherited Disease N Breast Problem N Gestational Diabetes N Hematologic disorders N Anesthesia Complications N History of STI Y Deep Vein Thrombosis N Polycystic ovary syndrome N Anxiety Disorder N Autoimmune disease N Arthritis N Infertility N Polyps N Acid Reflux (GERD) N History of abnormal pap N Cancer N Stroke N Varicosities N Neurologic/Epilepsy N Endometriosis N High Cholesterol N Headaches Y Fibromyalgia N Kidney Disease N Heart Problems Y Kidney or Bladder Problems N Thyroid Problems N GI Problems N Eating Disorder N Anemia N Art (IVF or FET) N Psychiatric Illness N Ovarian Cancer N Diabetes N Pulmonary (TB, Asthma) N Hepatitis/Liver Disease N No Past Medical History N Eczema N Urinary Tract Infection N Abuse/Domestic Violence N Asthma N Trauma/Violence N Depression/ depression N Heart Disease N Pre-Eclampsia N Hypertension N Osteoporosis N Thrombophilias N Gynecological History Statement/Question Response Abnormal Pap N Flow Moderate Date of LMP 02/18/2024 On BCP's at Conception? N N Was last menstrual period normal Y STIs/STDs Y HPV Vaccine N Duration of Flow (days) 5 Current Control Method None Are cycles usually normal Y Frequency of Cycle (Q days) 28 Sexually Active? Y BCPs Menses Monthly Y Age of first menstrual cycle 14 Date of Last Pap Smear 03/29/2021 Sexual Problems? N Desired Control Method None LMP Definite N Obstetrics History GPAL:G 1 P 1 0 0 1 Type Value Full Term 1 Living 1 Total 1 Past Encounters Encounter ID Performer Location Encounter Start Date Encounter Closed Date Diagnosis/Indication Diagnosis SNOMED-CT Code Diagnosis ICD10 Code Diagnosis Note [id number] Venkat Richardson MD [facility] [address] [address] 03/17/2021 10:31:15 03/17/2021 16:07:47 Reproductive care management [id number] Z31.9 The patient is a 25-year-ol d female presents for pre conceptual counseling . We spent about 30 minutes face-to-fa ce discussing many issues rory g preparatio n for , care, fertility , genetic screening. Ultrasound , 1st trimester loss. Patient had numerous questions. We talked about folic acid supplement ation prior to . She was instructed to take 1 mg Folic acid daily 3 months prior to conception . Patient will follow-up with us for care. We discussed numerous complex topics. [id number] Amelia Kilpatrick CNM [facility] [address],[place] [address] 03/29/2021 09:51:49 03/30/2021 10:27:18 Gynecologic examination 82153941 Z01.419 Take Calcium with Vitamin D 1200mg daily if not receiving in daily diet. It is strongly advised to have an annual flu shot and up can obtain at most pharmacies . If you have not had a TDap shot in the last 10 years you should obtain one as well. Discussed with patient & provided with informatio n regarding Gardisil vaccine to prevent the 4 strains for HPV that cause cervical cancer if under age 26. Encourage safe sexual practices, to use condoms and limit partners if not already in a monogamous relationsh ip. Do monthly self breast exams. Have mammogram yearly or every other year depending on family history. BRCA testing is now available for patients with strong genetic history of female cancer. If interested contact the office. Engage in daily exercise of low impact aerobic exercise 45-60 minutes 4-5 times weekly. Avoid tobacco and illicit drugs as well as using moderation with alcohol intake less than 1-2 8 oz beverages daily. This lifestyle behavior pattern will lead to less health conditions and longer life span. If BMI greater than 25 weight watchers or dietary consult advised. Patient received above instructio ns, and questions have been answered. If you have any questions please call or respond to this email. Patient was made aware of the patient portal and may obtain a paper copy of today's plan if desired. [id number] Amelia Kilpatrick CNM [place] [address] [address] 07/05/2021 13:53:52 07/05/2021 14:39:05 test positive [id number] Z32.01 Risk factors addressed: Tobacco Cessation, Safe Sexual Practices, environmen jacque, work hazards, travel restrictio ns, seat belt use.Eat a health well balanced diet, avoid alcohol, tobacco, and street drugs.Enga ge in daily low impact exercise, avoid temperatur e extremes, and cat, rodent, and bird feces.Avoi d travel to areas where zika virus is a concern.Of fered cf/sma/nip t. Handouts given and discussed with patient.Ch ildbirth classes recommende d.New OB sheet given.If previous , counseling .Pt verbalizes that she understand s the importance of above instructio ns.All questions were answered.P atient reminded to have annual well woman examinatio n and address [facility] . [id number] Venkat Richardson MD [place] [address],[place] [address] 07/05/2021 13:55:57 07/05/2021 14:45:36 [id number] Corrine Monroe MD [place] [address],[place] [address] 08/02/2021 11:53:51 08/02/2021 15:08:20 Routine care [id number] Z34.91 [id number] Corrine Monroe MD [place] [address] [place] [address] 08/02/2021 11:54:41 08/02/2021 13:50:56 Uncertain viability of 021483212 O36.80X0 Z3A.12 [id number] Amelia Kilpatrick [facility] [address] [place] [address] 08/30/2021 09:32:19 09/01/2021 13:03:48 Routine care 135832240 Z34.92 [id number] Venkat Richardson MD [place] [address] [place] [address] 08/30/2021 09:30:43 08/31/2021 03:50:13 [id number] Venkat Richardson MD [place] [address] [place] [address] 09/06/2021 12:25:27 09/06/2021 13:58:34 [id number] Corrine Monroe MD [place] [address],[place] [address] 09/28/2021 09:26:48 09/28/2021 10:47:52 screening for malformation [id number] Z36.3 [id number] Porsche Morales [facility] [address],[place] [address] 09/28/2021 09:27:05 09/28/2021 11:16:04 Routine care 977903969 Z34.92 [id number] Corrine Monroe MD [place] [address],[place] [address] 10/12/2021 11:59:54 10/12/2021 13:19:20 screening 534118202 Z36.2 O36.5920 Z3A.23 [id number] Venkat Richardson MD [place] [address],[place] [address] 10/18/2021 14:50:26 10/18/2021 15:59:38 Headache 81645806 R51.9 Pt here for blood pressure check due to persistent headache. BP 129/80. SB recommende d fioricet if pt's BP was normal and medication was previously sent to out. Pt will proceed with medication and call if no relief or if [place] experience [place] a [place] [id number] Porsche Morales [facility] [address],[place] [address] 10/26/2021 12:22:42 10/26/2021 14:03:13 Routine care 782325723 Z34.92 [id number] [facility] [address] [address] 11/23/2021 10:21:38 11/23/2021 11:36:48 Routine care [id number] Z34.92 [id number] [facility] [address],[place] [address] 12/07/2021 09:17:25 12/07/2021 09:53:19 Routine care 495029121 Z34.92 [id number] Porsche Morales [facility] [address],[place] [address] 12/21/2021 09:33:37 12/21/2021 10:27:17 Routine care [id number] Z34.92 [id number] Porsche Morales [facility] [address] [address] 01/04/2022 14:20:22 01/04/2022 15:24:08 Routine care [id number] Z34.92 [id number] Amelia Kilpatrick [facility] [address],[place] [address] 01/12/2022 11:30:41 01/12/2022 14:30:00 Routine care [id number] Z34.92 [id number] Porsche Morales [facility] [address],[place] [address] 01/18/2022 10:20:59 01/18/2022 15:03:31 Routine care [id number] Z34.92 [id number] Venkat Richardson MD [place] [address],[place] [address] 01/27/2022 09:40:40 01/27/2022 10:34:18 Postoperative care 707734814 Z48.89 patient is a 26-year-ol d female who is 1 week postop from a delivery. Her incision is clean dry and intact. She is recovering in a normal fashion. She has no complaints . She denies any nausea, vomiting, fever, chills. She does report some dysuria. She had dysuria the hospital. Urine culture from the hospital was normal. We will repeat culture today. [id number] Venkat Richardson MD [place] [address],[place] [address] 03/10/2022 11:29:46 03/10/2022 12:14:32 care 356088074 Z39.2 This patient is a 26-year-ol d female presents for follow-up. She is breast feeding, she does not want any contracept ion, they will use condoms, mood is good, her baby is well, her bleeding is normal, she has had sex. She return in 3 months for well-woman exam. [id number] THIERRY DE GUZMAN MD [facility] [address] [address] 02/29/2024 09:29:03 02/29/2024 12:13:13 Gynecologic examination 43018386 Z01.419 Well woman care- Cervical cancer screening: Pap smear obtained today, will follow up on the results with the patient as they become available- Breast cancer screening: mammogram not indicated- Colon cancer screening: does not qualify- HPV immunizati on: declined- STD testing: declined- hereditary cancer screening: does not qualify for testing Health Concerns Section Related Observation LastModified by Organization Detai ls LastModified Time None Recorded Concern Status LastModified by Organization Details LastModified Time None Recorded Advance Directives Directive N: Payers Encounter Date Sequence Insurance Name Policy Number Policy Mayorga Covered Member ID Mayorga Member ID Guarantor Name 01/12/2022 1 [employer] (PPO) [id number] Errol Quintero [id number] Chelsea Quintero 01/18/2022 1 [employer] (PPO) [id number] Errol Quintero [id number] Chelsea Quintero 01/27/2022 1 [employer] (PPO) [id number] Errol Quintero [id number] Chelsea Quintero 03/10/2022 1 [employer] (PPO) [id number] Errol Quintero [id number] Chelsea Quintero 02/29/2024 1 [employer] (PPO) [id number] Errol Quintero [id number] Chelsea Quintero Notes Date Note Type Note Provider Name and Address Organization Details Recorded Time 01/27/2022 text/html patient is a 26-year-old female who is 1 week postop from a delivery. Her incision is clean dry and intact. She is recovering in a normal fashion. She has no complaints. She denies any nausea, vomiting, fever, chills. She does report some dysuria. She had dysuria the hospital. Urine culture from the hospital was normal. We will repeat culture today. Venkat Richardson MD [address], [place], [address], [facility] 01/27/2022 10:32:15 03/10/2022 text/html VisitReported bypatient.Notes:This patient is a 26-year-old female presents for follow-up. She is breast feeding, she does not want any contraception, they will use condoms, mood is good, her baby is well, her bleeding is normal, she has had sex. She return in 3 months for well-woman exam. Venkat Richardson MD [address], [place], [address], [facility] 03/10/2022 12:08:07 02/29/2024 text/html Presents today f or her annual well-woman exam. Denies abnormal vaginal discharge. She is sexually active and denies dyspareunia. She is not using contraception, and she states that she is satisfied with this method. She is considering in the next 6 months. She has not noticed any changes or masses in her breasts. LMP 02/18/24. Periods are Q28 days and last 5 days. Flow is moderate, no intermenstrual spotting. THIERRY DE GUZMAN MD [address], [place], [address], [facility] 02/29/2024 11:35:41 OBGyn Episode Ob Episode Information Episode Created Date Number of Fetuses Patient Bloodtype Patient rh Status Prepregnancy Weight lbs Domestic Partner Domestic Partner Phone Father Name Petrology Teacher Status 08/02/19 22 1 A Positive 169 CLOSED Fetus Data First Name Last Name Admitted to NICU Weight (g) Sex Living Outcome Pediatric Complications Fetus ID Race Codes Race Delivery Type [place] 2353.00 85 F true Full Term [id number] Primary Problems Problem Notes COVID vaccinated February 2021 , not boosted Level II 10/21 & 11/18 8:15A [facility] 11/25 9AM u/s & NST, 12/02 u/s & NST & scheduled weekly u/s and NST [facility] office, 01/27 PIH WNL Problem Name Start Date End Date Resolution Snomed Code Not e 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 Make sure pt completes this! 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 Hypoglycemia 01/06/2022 [id number] small freq meals, precautions given Reese Calculation Initial Reese Date Initial Exam Date Initial Exam Provider Initial Ultrasound Date Last Menstrual Period Date Ultra Sound Weeks Gestation 02/08/2022 08/02/2021 07/05/2021 05/04/2021 8 Eighteen To Twenty Week Reese Update Ultra Sound Date Fundal Height At Umbil Quickening Date Ultra Sound Latest Weeks Gestation Final Reese Confirmed By Final Reese Confirmed Date Final Reese Date Ultra Sound Latest Days Gestation 0 09/28/2021 02/09/20 22 0 Pre-helder Flowsheet Flowsheet Date 08/02/2021 Tinajero Score Blood Edema Fundus Height Fundus Units Glucose Ketones Leukocytes Nitrite Labor Signs Protein Cervic Dilation Cervic Effacement Cervic Station neg none none trace Type Weight in lbs Pre/Post Dialysis Refused Weight 164.22022141394 BP Diastolic BP Location Tested BP Systolic BP Type 76 127 Fetus Heart Rate Present Fetus Movement A Yes Comments Chelsea is a 26yo G1 at 12.4 f or care with noncontributory history. PNL today. She declines genetic testing. Still some nausea and GERD- discussed OTCs. Ask re flu and COVID vaccines next visit. Flowsheet Date 08/02/2021 Tinajero Score Blood Edema Fundus Height Fundus Units Glucose Ketones Leukocytes Nitrite Labor Signs Protein Cervic Dilation Cervic Effacement Cervic Station Type Weight in lbs Pre/Post Dialysis Refused BP Diastolic BP Location Tested BP Systolic BP Type Fetus Heart Rate Present Fetus Movement Comments Flowsheet Date 08/30/2021 Tinajero Score Blood Edema Fundus Height Fundus Units Glucose Ketones Leukocytes Nitrite Labor Signs Protein Cervic Dilation Cervic Effacement Cervic Station Type Weight in lbs Pre/Post Dialysis Refused BP Diastolic BP Location Tested BP Systolic BP Type Fetus Heart Rate Present Fetus Movement Comments Flowsheet Date 08/30/2021 Tinajero Score Blood Edema Fundus Height Fundus Units Glucose Ketones Leukocytes Nitrite Labor Signs Protein Cervic Dilation Cervic Effacement Cervic Station none Type Weight in lbs Pre/Post Dialysis Refused Weight 167.654201107117 BP Diastolic BP Location Tested BP Systolic BP Type 64 L arm 107 sitting Fetus Heart Rate Present Fetus Movement A No Comments Nausea improved. U/S done bu t unable to find out gender today d/t positioning. Will return for ultrasound in 1 week. Flowsheet Date 09/06/2021 Tinajero Score Blood Edema Fundus Height Fundus Units Glucose Ketones Leukocytes Nitrite Labor Signs Protein Cervic Dilation Cervic Effacement Cervic Station Type Weight in lbs Pre/Post Dialysis Refused BP Diastolic BP Location Tested BP Systolic BP Type Fetus Heart Rate Present Fetus Movement Comments Flowsheet Date 09/28/2021 Tinajero Score Blood Edema Fundus Height Fundus Units Glucose Ketones Leukocytes Nitrite Labor Signs Protein Cervic Dilation Cervic Effacement Cervic Station Type Weight in lbs Pre/Post Dialysis Refused BP Diastolic BP Location Tested BP Systolic BP Type Fetus Heart Rate Present Fetus Movement Comments Flowsheet Date 09/28/2021 Tinajero Score Blood Edema Fundus Height Fundus Units Glucose Ketones Leukocytes Nitrite Labor Signs Protein Cervic Dilation Cervic Effacement Cervic Station neg none trace Type Weight in lbs Pre/Post Dialysis Refused Weight 172.244648074415 BP Diastolic BP Location Tested BP Systolic BP Type 84 144 74 140 62 126 Fetus Heart Rate Present Fetus Movement A Yes Comments PATIENT HAS HAD SOME PAIN AN D DISCHARGE. anatomy incomplete, efw 7%, discussed f/u in 4 weeks precautions reviewed Flowsheet Date 10/12/2021 Tinajero Score Blood Edema Fundus Height Fundus Units Glucose Ketones Leukocytes Nitrite Labor Signs Protein Cervic Dilation Cervic Effacement Cervic Station Type Weight in lbs Pre/Post Dialysis Refused BP Diastolic BP Location Tested BP Systolic BP Type Fetus Heart Rate Present Fetus Movement Comments Flowsheet Date 10/18/2021 Tinajero Score Blood Edema Fundus Height Fundus Units Glucose Ketones Leukocytes Nitrite Labor Signs Protein Cervic Dilation Cervic Effacement Cervic Station Type Weight in lbs Pre/Post Dialysis Refused BP Diastolic BP Location Tested BP Systolic BP Type Fetus Heart Rate Present Fetus Movement Comments Flowsheet Date 10/26/2021 Tinajero Score Blood Edema Fundus Height Fundus Units Glucose Ketones Leukocytes Nitrite Labor Signs Protein Cervic Dilation Cervic Effacement Cervic Station neg none trace Type Weight in lbs Pre/Post Dialysis Refused Weight 181.905282896159 BP Diastolic BP Location Tested BP Systolic BP Type 70 127 Fetus Heart Rate Present Fetus Movement A Yes Comments PATIENT STATES THAT HAVING S OEM BH CONTRACTIONS AND DISCHARGE. growth >10% at [facility] has f/u in 4 weeks, reviewed precautions plan GCT next visit Flowsheet Date 11/23/2021 Tinajero Score Blood Edema Fundus Height Fundus Units Glucose Ketones Leukocytes Nitrite Labor Signs Protein Cervic Dilation Cervic Effacement Cervic Station neg none none trace Type Weight in lbs Pre/Post Dialysis Refused Weight 188.377262542482 BP Diastolic BP Location Tested BP Systolic BP Type 83 144 Fetus Heart Rate Present A 150 Fetus Movement A Yes Comments PATIENT IS HAVING PAIN, HEAR TBURN AND DISCHARGE. rpt bp 132/70, draw labs due to IUGR <5% at [facility] today, vertex, saw cardiology having Echo, precautions reviewed f/u weekly at [facility] and every other week here Flowsheet Date 12/07/2021 Tinajero Score Blood Edema Fundus Height Fundus Units Glucose Ketones Leukocytes Nitrite Labor Signs Protein Cervic Dilation Cervic Effacement Cervic Station neg none 30 none trace Type Weight in lbs Pre/Post Dialysis Refused Weight 189.365884795408 BP Diastolic BP Location Tested BP Systolic BP Type 76 127 Fetus Heart Rate Present A 133 Present Fetus Movement A Yes Comments doing well, call for preadmi t, has pedi picked out, had her echo and was wnl, precautions reviewed f/u 2 weeks Flowsheet Date 12/21/2021 Tinajero Score Blood Edema Fundus Height Fundus Units Glucose Ketones Leukocytes Nitrite Labor Signs Protein Cervic Dilation Cervic Effacement Cervic Station neg none 34 none trace Type Weight in lbs Pre/Post Dialysis Refused Weight 193.17420337985 BP Diastolic BP Location Tested BP Systolic BP Type 76 135 Fetus Heart Rate Present A 154 Fetus Movement A Yes Comments seeing [facility] weekly, growth 11 %, preadmit scheduled, precautions reviewed f/u 2 weeks Flowsheet Date 01/04/2022 Tinajero Score Blood Edema Fundus Height Fundus Units Glucose Ketones Leukocytes Nitrite Labor Signs Protein Cervic Dilation Cervic Effacement Cervic Station neg trace none trace Type Weight in lbs Pre/Post Dialysis Refused Weight 195.165536400109 BP Diastolic BP Location Tested BP Systolic BP Type 72 115 Fetus Heart Rate Present Fetus Movement A Yes Comments patient states that had some vision change the other day and is having headache, swelling, dizziness and nausea. recheck labs today, ok to do #2 fioricet, reviewed PIH precautions, off work due to elevated pressures at work and continued SOB, hx IUGR and seeing MFM was seen sunday in [place], swelling trace bilateral ankles, plan GBS next week Flowsheet Date 01/12/2022 Tinajero Score Blood Edema Fundus Height Fundus Units Glucose Ketones Leukocytes Nitrite Labor Signs Protein Cervic Dilation Cervic Effacement Cervic Station neg trace 34 none trace 0cm Type Weight in lbs Pre/Post Dialysis Refused Weight 194.827282782449 BP Diastolic BP Location Tested BP Systolic BP Type 72 122 Fetus Heart Rate Present A 150 Fetus Movement A Yes Comments Doing well. Occasional cramp ing. Denies pih symptoms. Does meet criteria for GHTN but bp great at this time and no symptoms now. Will reassess at each visit. Knows there is a chance of early induction. Cervix closed and thick but very anterior.34Plan to start prophylaxis for hsv 2. No outbreaks. Flowsheet Date 01/18/2022 Tinajero Score Blood Edema Fundus Height Fundus Units Glucose Ketones Leukocytes Nitrite Labor Signs Protein Cervic Dilation Cervic Effacement Cervic Station neg none none trace Type Weight in lbs Pre/Post Dialysis Refused Weight 197.844687389296 BP Diastolic BP Location Tested BP Systolic BP Type 88 156 100 180 Fetus Heart Rate Present Fetus Movement A Yes Comments patient is having headaches, vision, changes, shortness of breathe, dizzy, nausea, loose stools, lower pressure and cramping. severe range blood pressures headache not relieved with fioricet, + edema bilateral 1+, sent to LD for delivery, was in hospital on sunday with same sxs, labs at that time wnl, nurse told CNM that bautista had resolved, but pt states it did not and has been taking 2-3 fioricet w/o resolution, Flowsheet Date 01/27/2022 Tinajero Score Blood Edema Fundus Height Fundus Units Glucose Ketones Leukocytes Nitrite Labor Signs Protein Cervic Dilation Cervic Effacement Cervic Station Type Weight in lbs Pre/Post Dialysis Refused Weight 182.208875396845 BP Diastolic BP Location Tested BP Systolic BP Type 75 R arm 122 sitting Fetus Heart Rate Present Fetus Movement Comments Menstrual History Last Menstrual Date Menses Monthly On Bcp Conception Prior Menses Frequency Hcg Plus Date Menarche Onset Age 1005/04/2021 Genetic Screening And Infection History Question Response Note Mental Retardation/Autism false Patient's Age Will Be 35 Years Or Older At Estim ated Date of Delivery false Thalassemia (Polish, Liberian, Mediterranean, Or Background): MCV < 80 false Neural Tube Defect (Meningomyelocele, Spina Bifi da, Or Anencephaly) false Congenital Heart Defect false Down Syndrome false Bhanu-Sachs (eg, Hindu, Cajun, Swedish-[place]) f alse Dahiana Disease false Sickle Cell Disease Or Trait () false Hemophilia Or Other Blood Disorders false Muscular Dystrophy false Cystic Fibrosis false Piscataquis's Chorea false Intellectual Disability/Autism false If Yes, Was Person Tested For Fragile X? false Other Inherited Genetic Or Chromosomal Disorder false Maternal Metabolic Disorder (eg, Type 1 Diabetes , PKU) false Patient Or Baby's Father Had A Child With Defects Not Listed Above false Recurrent Loss, Or A Stillbirth false Medications (including Suppl ements, Vitamins, Herbs, OTC Drugs), Illicit/Recreational Drugs, Alcohol false If Yes, Agent(s) And Strength/Dosage false Any Other Genetic History false Live With Someone With TB Or Exposed To TB false Patient Or Partner Has History Of Genital Herpes false Rash Or Viral Illness Since Last Menstrual Perio d false History Of STD, Gonorrhea, Chlamydia, HPV, Syphi lis false Other Infection History false History of HIV false History of Hepatitis false Prior GBS-infected child false Hemoglobinopathy Or Carrier false Other Structural Defect false Recent Travel History Outside of Country false Delivery Information Delivery Date Delivery Type Labor Anesthesia Weeks Gestation Incision Type Labor Labor Length Hrs Delivered By Post Complications Tubal Sterilization Discharge Date Comments 2 Induce d [facility] 37.2 Low Transvers e false Venkat Richardson MD Severe Pre eclampsia , emergency c/s, non reassurin g FHR pattern, Herpes Simplex & IUGR Discharge Information Feeding Method Contraceptive Method Maternal HG B and HCT Levels
--- OUTSIDE RECORDS SUMMARY | 2024-11-23 13:39 | XMS_ITS | Encounter Summary ---
Author Organization [employer] [facility] Address [address] [place] [address] Care Team Providers Care Cost Controller Name Role Phone Angelica Fisher MD Primary Care Provider [phone] Encounter Details Date Type Department Care Team (Late st Contact Info) Description 11/12/2024 Results Follow-Up [facility] [employer] [place] [address] [place] [address] Angelica Fisher MD [address] [place] [address] HEMOGLOBIN A1C, VITAMIN D 25 HYDROXY, COMPREHENSIVE METABOLIC PANEL, Additional followed-up results: 3 Social History Tobacco Use Types Packs/Day Years Used Date Smoking Tobacco: Never Smokeless Tobacco: Never Alcohol Use Standard Drinks/Week Comments Yes 1 (1 standard drink = 0.6 oz pure alcohol) Occassionally- 1 glass wine/ mo Comments No Sex and Gender Information Value Date Recorded Sex Assigned at Female 10/09/2024 12:04 PM CDT Legal Sex Female 4:00 PM CDT Gender Identity Female 10/09/2024 12:04 PM CDT Sexual Orientation Not on file documented as of this encounter Miscellaneous Notes * Result Encounter Note - Rut Hector - 11/12/2024 9:11 AM CDT Patient has been informed and voiced understanding. * Result Encounter Note - Emilia Jon RN - 11/12/2024 8:24 AM CDT Left voicemail for patient to call back regarding lab results documented in this encounter Plan of Treatment Upcoming Encounters Date Type Department Care Team (Late st Contact Info) Description 12/09/2024 8:00 AM CDT Video Visit [facility] [employer] [place] [address] [place] [address] Avelino Garibay [address] [place] [phone] 12/31/2024 9:00 AM CDT Office Visit [facility] [employer] [place] [address] [place] [address] Angelica Fisher MD [address] [facility] [place] [address] documented as of this encounter Visit Diagnoses Not on filedocumented in this encounter Additional Health Concerns Assessment Noted Time PHQ-9 Depression Total Score: 4 09/25/19 8:00 AM COW PUNCHER documented as of this encounter Care Teams Cost Controller Relationship Specialty Start Date End Date Angelica Fisher MD [address] [facility] [place] [address] PCP - General Internal Medicine 08/27/24 documented as of this encounter
--- OUTSIDE RECORDS SUMMARY | 2024-11-23 13:39 | XMS_ITS | Clinical Summary ---
Author Organization [facility] [employer] [place] Address [address] [employer] [address] [address] Care Team Providers Care 1St Grade Teacher Name Role Phone Angelica Fisher MD Primary Care Provider [phone] Allergies No known active allergies Medications OTHER Sleep 360 nighttime product with Mg, Melantonin and saffron for sleep. 07/22/20 24 Active magnesium oxide 400 mg magnesium Tablet Take 1 Each by mouth daily. 07/22/20 24 Active sertraline (Zoloft) 100 mg tabletIndicati ons:CATHERINE (generalized anxiety disorder) Take 1 Tablet (100 mg) by mouth daily. 90 Tablet 1 10/31/19 25 Active sertraline (Zoloft) 50 mg tabletIndicati ons:CATHERINE (generalized anxiety disorder) Take 2 Tablets (100 mg) by mouth daily. 90 Tablet 1 10/04/19 25 025 Discontinued Active Problems Problem Noted Date Diagnosed Date CATHERINE (generalized anxiety disorder) 09/24/2024 Low HDL (under 40) 08/27/2024 Encounters Date Type Department Care Team Description 11/18/2024 2:00 PM CDT Video Visit [facility] [employer] [place] [address] [place] [address] Avelino Garibay Recurrent mild major depressive disorder with anxiety (Primary Dx) 11/12/2024 Results Follow-Up [facility] [employer] [place] [address] [place] [address] Angelica Fisher MD HEMOGLOBIN A1C, VITAMIN D 25 HYDROXY, COMPREHENSIVE METABOLIC PANEL, Additional followed-up results: 3 11/10/2024 9:00 AM CDT Office Visit [place] [address] [facility] [place] [phone] Screening for condition; Low HDL (under 40); CATHERINE (generalized anxiety disorder) 10/30/2024 8:30 AM CDT Office Visit [address] [place] [address] Angelica Fisher MD CATHERINE (generalized anxiety disorder) (Primary Dx); Benign skin mole 10/29/2024 Telephone [facility] [place] [address] [facility] [place] [address] Avelino Garibay [employer] (3rd contact to reschedule missed appointment. Left message.) 10/21/2024 External Device Data STL ABSTRACTION Provider, Abstract 10/15/2024 [facility] [address] [facility] [place] [address] Avelino Garibay [employer] (2nd contact to reschedule appointment. left message.) 10/10/2024 [facility] [address] [place] [address] Avelino Garibay [employer] 10/05/2024 Chart Note [facility] [place] [address] [facility] [place] [address] Avelino Garibay 09/27/2024 External Device Data STL ABSTRACTION Provider, Abstract 09/26/2024 External Device Data STL ABSTRACTION Provider, Abstract 09/24/2024 9:00 AM SHOE DRESSER Office Visit [address] [place] [address] Avelino Garibay Recurrent mild major depressive disorder with anxiety (Primary Dx) 09/24/2024 8:00 AM SHOE DRESSER Office Visit [place] [address] [place] [address] Angelica Fisher MD CATHERINE (generalized anxiety disorder) (Primary Dx) 09/23/2024 External Device Data STL ABSTRACTION Provider, Abstract 09/09/2024 External Device Data STL ABSTRACTION Provider, Abstract 08/29/2024 Telephone [facility] [place] [address] [place] [phone] Avelino Garibay Initial Contact (1st contact. Scheduled initial assessment for 09/24/24 at 9 AM in office.) 08/27/2024 8:00 AM SHOE DRESSER Office Visit [facility] [place] [address] [place] [address] Angelica Fisher MD Encounter to establish care (Primary Dx); Low HDL (under 40); Screening for condition; CATHERINE (generalized anxiety disorder) from Last 3 Months Family History Medical History Relation Name Comments No Known Problems Daughter Throat Cancer Father 48 No Known Problems Maternal Grandfather Breast Cancer Maternal Grandmother Ovarian Cancer Maternal Grandmother No Known Problems Mother 47 No Known Problems Paternal Grandfather No Known Problems Paternal Grandmother No Known Problems Sister 1 24 No Known Problems Sister 2 6 Relation Name Status Comments Daughter Alive Father 48 Alive throat cancer a ge 44 Maternal Grandfather Alive Maternal Grandmother Mother 47 Alive Paternal Grandfather Alive Paternal Grandmother Alive Sister 1 24 Alive Sister 2 6 Alive Social History Tobacco Use Types Packs/Day [...] PM CDT Sexual Orientation Not on file Last Filed Vital Signs Vital Sign Reading Time Taken Comments Blood Pressure 102/60 11/10/2024 8:52 AM CDT Pulse 94 10/30/2024 8:42 AM CDT Temperature 36.7 C (98.1 F) 09/24/2024 7:58 AM SHOE DRESSER Respiratory Rate 18 10/30/2024 8:42 AM CDT Oxygen Saturation 97% 10/30/2024 8:42 AM CDT Inhaled Oxygen Concentration - - Weight 61.2 kg (135 lb) 11/10/2024 8:52 AM CDT Height 162.6 cm (5' 4 ) 11/10/2024 8:52 AM CDT Body Mass Index 23.17 11/10/2024 8:52 AM CDT Plan of Treatment Upcoming Encounters Date Type Department Care Team (Late st Contact Info) Description 12/09/2024 8:00 AM CDT Video Visit [facility] [employer] [place] [address] [place] [address] Avelino Garibay [address] [place] [phone] 12/31/2024 9:00 AM CDT Office Visit [facility] [employer] [place] [address] [place] [address] Angelica Fisher MD [address] [place] [address] Health Maintenance Due Date Last Done Comments DTAP/TDAP/TD VACCINES (1 - Tdap) 2015 HEPATITIS B VACCINES (1 of 3 - 19+ 3-dose series) 2015 HPV/Cotest (21-29) 2017 INFLUENZA VACCINE (#1) 2024 CERVICAL CANCER SCREENING 02/28/2027 PAP SMEAR 02/28/2027 02/29/2024 HPV VACCINES Aged Out No longer eligi ble based on patient's age to complete this topic Procedures Procedure Name Priority Date/Time Associated Diagnosis Comments TSH Routine 11/10/2024 8:48 AM CDT Screening for condition CATHERINE (generalized anxiety disorder) LIPID PANEL Routine 11/10/2024 8:48 AM CDT Low HDL (under 40) Screening for condition CBC WITH DIFFERENTIAL Routine 11/10/2024 8:48 AM CDT Screening for condition COMPREHENSIVE METABOLIC PANEL Routine 11/10/2024 8:48 AM CDT Screening for condition VITAMIN D 25 HYDROXY Routine 11/10/2024 8:48 AM CDT Screening for condition HEMOGLOBIN A1C Routine 11/10/2024 8:48 AM CDT Screening for condition from Last 3 Months Results * CBC WITH DIFFERENTIAL (11/10/2024 8:48 AM CDT) [facility] WBC 6.3 3.8 - 10.8 Thousand/u L [facility] RBC 3.94 3.80 - 5.10 Million/uL [facility] HEMOGLOBIN 12.6 11.7 - 15.5 g/dL [facility] HEMATOCRIT 39.4 35.0 - 45.0 % [facility] MCV 100.0 80.0 - 100.0 fL [facility] MCH 32.0 27.0 - 33.0 pg [facility] MCHC 32.0 32.0 - 36.0 g/dL [facility] Comment: For adults, a slight decrease in the calculated MCHC value (in the range of 30 to 32 g/dL) is most likely not clinically significant; however, it should be interpreted with caution in correlation with other red cell parameters and the patient's clinical condition. RDW 12.0 11.0 - 15.0 % [facility] PLATELETS 244 140 - 400 Thousand/u L [facility] MPV 11.3 7.5 - 12.5 fL [facility] NEUTROPHIL ABSOLUTE 3,786 1,500 - 7,800 cells/uL [facility] LYMPHOCYTE ABSOLUTE 2,003 850 - 3,900 cells/uL [facility] MONOCYTE ABSOLUTE 403 200 - 950 cells/uL [facility] EOSINOPHIL ABSOLUTE 69 15 - 500 cells/uL [facility] BASOPHILS ABSOLUTE 38 0 - 200 cells/uL [facility] NEUTROPHIL 60.1 % [facility] LYMPHOCYTES 31.8 % [facility] MONOCYTE 6.4 % [facility] EOSINOPHILS 1.1 % [facility] BASOPHILS 0.6 % [facility] Comment: Test Performed at: [facility] [address] [place] [address] Karma Rascon Blood 11/10/2024 8:48 AM CDT 11/11/2024 5:49 AM CDT us Angelica Fisher MD HEMATOLOGY ORDERABLES Final Re sult [facility] [phone] [place] [address] [place] [address] * VITAMIN D 25 HYDROXY (11/10/2024 8:48 AM CDT) VITAMIN D, 25 OH, TOTAL 69 30 - 100 ng/mL [facility] Comment: Vitamin D Status 25-OH Vitamin D: Deficiency: <20 ng/mL Insufficiency: 20 - 29 ng/mL Optimal: > or = 30 ng/mL For 25-OH Vitamin D testing on patients on D2-supplementation and patients for whom quantitation of D2 and D3 fractions is required, the [facility]TM) 25-OH VIT D, (D2,D3), LC/MS/MS is recommended: order code 77202 (patients >2yrs). See Note 1 Note 1 For additional information, please refer to http://education.LocalBonus/faq/UFU481 (This link is being provided for informational/ educational purposes only.) Test Performed at: [facility] [address] [place] [address] Karma Rascon MD Blood 11/10/2024 8:48 AM CDT 11/11/2024 5:49 AM CDT us Angelica Fisher MD CHEMISTRY ORDERABLES Final Res ult [facility] [phone] [facility] [address] [facility] [place] [address] * TSH (11/10/2024 8:48 AM CDT) Pathologist [facility] TSH 0.82 mIU/L Brian [place] GreenBernabe Lopez Comment: Reference Range > or = 20 Years 0.40-4.50 Ranges First trimester 0.26-2.66 Second trimester 0.55-2.73 Third trimester 0.43-2.91 Test Performed at: [facility] [address] [place] [phone] [facility] Vo Blood 11/10/2024 8:48 AM CDT 11/11/2024 5:49 AM CDT Angelica Fisher MD CHEMISTRY ORDERABLES Final Res ult [facility] [phone] [facility] [place] [address] [place] [address] * HEMOGLOBIN A1C (11/10/2024 8:48 AM CDT) Pathologist [facility] HEMOGLOBIN A1C 5.0 <5.7 % of total Hgb Brian [place] GreenBernabe Lopez Comment: For the purpose of screening for the presence of diabetes: <5.7% Consistent with the absence of diabetes 5.7-6.4% Consistent with increased risk for diabetes (prediabetes) > or =6.5% Consistent with diabetes This assay result is consistent with a decreased risk of diabetes. Currently, no consensus exists regarding use of hemoglobin A1c for diagnosis of diabetes in children. According to [place] Diabetes Association (ADA) guidelines, hemoglobin A1c <7.0% represents optimal control in non- diabetic patients. Different metrics may apply to specific patient populations. Standards of Medical Care in Diabetes(ADA). ESTIMATED AVERAGE GLUCOSE (MG/DL) 97 mg/dL Brian [place] GreenBernabe Lopez ESTIMATED AVERAGE GLUCOSE (MMOL/L) 5.4 mmol/L Brian [place] GreenBernabe Lopez Comment: Test Performed at: [place] [facility] [address] [place] [phone] [facility] Vo Blood 11/10/2024 8:48 AM CDT 11/11/2024 5:49 AM CDT us Angelica Fisher MD CHEMISTRY ORDERABLES Final Res ult Performing Organization Address City/[facility] Code Phone Number [facility] [phone] [place] [address] [place] [address] * (ABNORMAL) LIPID PANEL (11/10/2024 8:48 AM CDT) CHOLESTEROL 158 <200 mg/dL [facility] HDL 45(L) > OR = 50 mg/dL [facility] TRIGLYCERIDE 57 <150 mg/dL [facility] LDL CALCULATED 99 mg/dL (calc) Morning Tec lashaun Lopez Comment: Reference range: <100 Desirable range <100 mg/dL for primary prevention; <70 mg/dL for patients with CHD or diabetic patients with > or = 2 CHD risk factors. LDL-C is now calculated using the Pancho-Jose Rafael calculation, which is a validated novel method providing better accuracy than the Friedewald equation in the estimation of LDL-C. Pancho COOPER et al. LILLI. 2013;310(19): 3053-8631 (http://education.LocalBonus/faq/HSN005) CHOL/HDL RATIO 3.5 <5.0 (calc) [facility] lashaun Lopez NON-HDL CHOLESTEROL 113 <130 mg/dL (calc) Linki lashaun John Comment: For patients with diabetes plus 1 major ASCVD risk factor, treating to a non-HDL-C goal of <100 mg/dL (LDL-C of <70 mg/dL) is considered a therapeutic option. Test Performed at: [facility] [address] [place] [address] Ezequielkerri Cora Rascon Blood 11/10/2024 8:48 AM CDT 11/11/2024 5:49 AM CDT us Angelica Fisher MD CHEMISTRY ORDERABLES Final Res ult Performing Organization Address City/[facility]/ZIP Code Phone Number [facility] [phone] [place] [address] [address] * COMPREHENSIVE METABOLIC PANEL (11/10/2024 8:48 AM CDT) GLUCOSE 80 65 - 99 mg/dL [facility] [place] GreenArron Lopez Comment: Fasting reference interval BUN 13 7 - 25 mg/dL Brian [place] GreenArron Lopez CREATININE 0.94 0.50 - 0.96 mg/dL [facility] Lopez EGFR 85 > OR = 60 mL/min/1. 73m2 [facility] lashaun Lopez BUN/CREAT RATIO SEE NOTE: (calc) [facility]Arron Lopez Comment: Not Reported: BUN and Creatinine are within reference range. SODIUM 140 135 - 146 mmol/L [facility] lashaun Lopez POTASSIUM 4.0 3.5 - 5.3 mmol/L [facility] [place] lashaun Lopez CHLORIDE 108 98 - 110 mmol/L Brian [place] lashaun Lopez CO2 27 20 - 32 mmol/L [facility] lashaun Lopez CALCIUM 9.4 8.6 - 10.2 mg/dL [facility] TOTAL PROTEIN 6.8 6.1 - 8.1 g/dL [facility] ALBUMIN 4.2 3.6 - 5.1 g/dL [facility] GLOBULIN 2.6 1.9 - 3.7 g/dL (calc) Linki lashaun Lopez ALBUMIN/GLOBULIN RATIO 1.6 1.0 - 2.5 (calc) Linki lashaun Lopez BILIRUBIN TOTAL 0.4 0.2 - 1.2 mg/dL [facility] ALKALINE PHOSPHATASE 38 31 - 125 U/L Morning T[facility] lahsaun Lopez AST 18 10 - 30 U/L [facility] ALT 19 6 - 29 U/L Linki lashaun Lopez Comment: Test Performed at: [facility] [address] [place] [phone] Karma Rascon Blood 11/10/2024 8:48 AM CDT 11/11/2024 5:49 AM CDT us Angelica Fisher MD CHEMISTRY ORDERABLES Final Res ult [facility] [phone] [place] [address] [place] [address] from Last 3 Months Care Teams 1St Grade Teacher Relationship Specialty Start Date End Date Angelica Fisher MD [address] [place] [address] PCP - General Internal Medicine 08/27/24
[2024-11-23 13:42] VITALS: BP 116/64; PULSE 77; RESP 16; TEMP 37; O2SAT 100
--- NOTE | 2024-11-23 14:18 | ED_ITS ---
HPI - URI/Sore Throat General Chief Complaint: Upper Respiratory Infection Stated Complaint: sore throat, ear inf Source: patient and RN notes reviewed Mode of arrival: ambulatory Limitations: no limitations History of Present Illness HPI Narrative: 29-year-old female presents [facility] complaining of sore throat for 6 days. Patient reports a sore throat, body aches, pain with swallowing, left ear pain and tender lymph nodes. Patient said her daughter and has been of also been sick with different upper respiratory symptoms. She denies any congestion, cough, chills, chest pain, shortness of breath, abdominal pain, nausea, vomiting, diarrhea. Related Data Home Medications ?Medication ?Instructions ?Recorded ?Confirmed ?Last Taken ?Type sertraline 100 mg tablet 100 mg PO DAILY 11/23/24 11/23/24 Unknown History Allergies Allergy/AdvReac Type Severity Reaction Status Date / Time Penicillins Allergy Unknown Verified 01/11/22 13:32 Review of Systems Review of Systems: CONSTITUTIONAL: Denies fever, chills, or sweats. EYES: Denies visual changes, redness, or discharge. ENT: Denies rhinorrhea, congestion, sore throat, or otalgia. CARDIOVASCULAR: Denies chest pain, palpitations, or edema. RESPIRATORY: Denies cough or dyspnea. GASTROINTESTINAL: Denies abdominal pain, nausea, vomiting, or diarrhea. GENITOURINARY: Denies dysuria or hematuria. SKIN: Denies rash or itching. MUSCULOSKELETAL: Denies back pain, joint pain, or myalgia. NEUROLOGIC: Denies headache, numbness, or weakness. PSYCHIATRIC: Denies anxiety or depression. All other systems reviewed are negative, except as documented in HPI. [facility] Past Medical History Medical History Migraine Family History Family History Father Esophageal cancer Grandparent Breast cancer in female Social History Social History Smoking status: Never smoker Substance use: never Spiritual care concerns: No Comments At the time of my signature, I reviewed and agree with the nursing past medical, surgical, social, and family history. There is no relevant family history pertinent to the patient complaint. Exam Narrative: GENERAL: This is a well-nourished, well-developed adult, in no apparent distress. They are non ill-appearing, nontoxic appearing. HEAD: normocephalic, atraumatic. EYES: Sclera clear/white. Conjunctiva normal. Vision is grossly intact. Extraocular movements intact EARS: External ears normal, auditory canals clear and without drainage, TMs normal without perforation. Hearing grossly intact. NOSE: External nose normal with no obvious nasal discharge, nasal turbinates without redness, no rhinorrhea. THROAT: Mucous membranes moist, posterior pharynx erythematous without exudate. Tonsils erythematous with exudate. Uvula midline. Normal movement of soft palate. NECK: Neck supple, tender cervical lymphadenopathy, masses or thyromegaly. CARDIOVASCULAR: Regular rate and rhythm without murmurs, gallops, or rubs. RESPIRATORY: Clear to auscultation. Breath sounds equal bilaterally. No wheezes, rales, or rhonchi. SKIN: warm, Dry, intact with no suspicious lesions or rash, good texture and turgor. NEURO: awake, alert, and oriented to person, place and time. There were no obvious focal neurologic abnormalities. EXTREMITIES: No joint tenderness, effusion, or edema noted. BACK: Nontender without deformity. Course Course Emergency Course: Portions of this record may have been created with voice recognition software Level of Care: Express Care Visit Vital Signs Vital signs: Vital Signs Temperature 98.6 F 11/23/24 13:42 Pulse Rate 77 11/23/24 13:42 Respiratory Rate 16 11/23/24 13:42 Blood Pressure 116/64 11/23/24 13:42 Pulse Oximetry 100 11/23/24 13:42 Oxygen Delivery Room Air 11/23/24 13:42 Temperature 98.6 F 11/23/24 13:42 Pulse Rate 77 11/23/24 13:42 Respiratory Rate 16 11/23/24 13:42 Blood Pressure 116/64 11/23/24 13:42 Pulse Oximetry 100 11/23/24 13:42 Oxygen Delivery Room Air 11/23/24 13:42 Reviewed MDM - URI/Sore Throat MDM Narrative Medical decision making narrative: Rapid strep and mono are negative. Throat culture pending. Likely viral pharyngitis/tonsillitis. Discussed physical exam findings. Advised supportive measures and signs/symptoms to go to the ER. Pt is appropriate for outpt treatment and f/u. Differential Diagnosis Differential diagnosis: Likely upper respiratory infection, pharyngitis and other (Mononucleosis) Lab Data Attestation: I reviewed the patient's lab results. Critical Care Time Critical Care Time Critical Care Time: No Discharge Plan Discharge Clinical Impression: Pharyngitis Qualifiers: Pharyngitis/tonsillitis etiology: unspecified etiology Qualified Code(s): J02.9 - Acute pharyngitis, unspecified Patient Disposition: Home Condition: Stable Instructions: Antibiotic Form, Pharyngitis (ED) Additional Instructions: Your rapid strep swab and mono was negative today at [facility]. You will be notified in a few days if the culture comes back positive for strep, and appropriate antibiotics will be called in for you at that time. Your symptoms are likely due to a viral illness, which is not treated with antibiotics. Viral symptoms can be present for up to 10-14 days. Take Tylenol or ibuprofen for fever or pain. Rest and stay hydrated. Follow up with your PCP in 3-5 days if symptoms are not improving. Go to the ER immediately if you develop difficulty breathing or swallowing, or any other concerns. Patient Language: [place] Prescriptions: No Action sertraline 100 mg tablet 100 mg PO DAILY azithromycin 250 mg tablet See Rx Instructions .ROUTE .COMPLEX Qty: 6 0RF Rx Instructions: For 250 mg dose pack: take 500 mg today (day 1), then 250 mg for 4 days (days 2-5) Follow-up/Referrals: Phillip,Angelica Barber MD [Primary Care Provider] - Time of Disposition: 14:40
[2024-11-24 11:57] LABS: EDMONONEGPOS Negative (Negative)
[2024-11-24 11:57] LABS: EDSTREPNEGPOS1 Negative (Negative)
== END 2024-11-23 14:43 | disposition home or self-care (01) ==
PROVIDERS: PCP Internal Medicine
DX: J02.9 Acute pharyngitis, unspecified (principal)
CPT/HCPCS: 36416; 86308; 87081; 87880; 99213; G0463